=== PATIENT | male | born 1950 | race Caucasian/White ===

== ENCOUNTER 2018-07-05 07:05 | Inpatient (IN) | payer MEDICARE, OTHER ==
[~2018-07-05] VITALS: Ht 160 cm; Wt 63.0 kg
[~2018-07-05 07:05] MED LIST: ADULT GLYCERIN1 EACH RC; CHLORHEXIDINE473 ML PO; CITRUS CALCIUM1 EACH PO; DEBROX15 ML OT; FLEET ENEMA133 ML PR; GUAIFENESIN DM S5 ML PO; GUIAFEN-PSE 10120 ML PO; HEMORRHOIDAL CR51 G1 RC; IBUPROFEN400 MG PO; IBUPROFEN600 MG PO; LOPERAMIDE2 MG PO; MAPAP325 MG PO; MILK OF MA400 MG/5 M PO; SUDOGEST30 MG PO; TUCKS1 EAC1 TP
--- NOTE | 2018-07-05 11:45 | NUR ---
PT RESTING IN BED, ALERT AND ORIENTED TO PERSON AND PLACE. CAREGIVER AT BEDSIDE. PT ABLE TO STATE THAT HE IS EXPERIENCING SOME PAIN TO RIGHT UPPER LEG. ASSESSMENT COMPLETED. CALL LIGHT AND H20 IN REACH.
--- NOTE | 2018-07-05 12:05 | NUR ---
CALL LEFT WITH PACU,RN TO NOTIFY DR RAMOS OF PT'S REPORTED RIGHT HIP PAIN WITH NO CURRENT ORDERS FOR PAIN MEDICATION. PT REPOSITIONED AND ICE APPLIED TO RIGHT HIP. CALL LIGHT IN REACH.
--- NOTE | 2018-07-05 12:09 | EKG ---
[facility] [address] [facility] [place], [place] [address] Signed Normal sinus rhythm with sinus arrhythmia Left anterior fascicular block Lateral infarct , age undetermined Abnormal ECG No previous ECGs available Confirmed by NOHEMI ESTEBAN MD ([id number]) on 07/05/2018 12:09:08 PM Electronically Signed By: NOHEMI ESTEBAN MD 07/05/18 1209 PATIENT NAME: VIKA SANTILLAN Electrocardiogram DATE OF : 54 PHYSICIAN: NOHEMI ESTEBAN MD REPORT #: [id number] REPORT IS CONFIDENTIAL AND NOT TO BE RELEASED WITHOUT AUTHORIZATION
[2018-07-05] MEDS ORDERED: CARBAMOXIDE15 ML OTIC (14:21)
[2018-07-05] MEDS ORDERED: TRIPLE ANTIB28.35 GM TOP (14:28)
--- NOTE | 2018-07-05 14:41 | NUR ---
PT RESTING SUPINE IN BED, EYES CLOSED AND RESPIRATIONS EVEN AND UNLABORED. AIR TESTER HERE TO TRANSPORT PT, REPORT GIVEN AND PT LEAVES FLOOR WITH AIR TESTER AT THIS TIME.
--- NOTE | 2018-07-05 17:13 | NUR ---
PT REMAINS OFF OF FLOOR, DR GABRIEL IN TO SPEAK WITH CAREGIVER.
--- NOTE | 2018-07-05 17:42 | NUR ---
07/05/18 174 Moni Kent 1710- PT ARRIVES TO PACU AROUSABLE TO VOICE. PT INSTANTLY BACK TO SLEEP. RESP EVEN AND UNLABORED. OXYGEN SAT LOW 90'S ON RA. 171- ATTEMPTING TO HAVE TO COUGH AND DEEP BREATHE. PT IS UNABLE TO FOLLOW THESE COMMANDS. PT'S SECRETIONS SUCTIONED.
--- NOTE | 2018-07-05 17:55 | NUR ---
RETUTNED TO ROOM 111. CHAMBER WORKER RECIEVED REPORT FROM TRASHMAN. PT IS AWAKE AND ALERT. THIS WNL FOR PATIENT. IVF TO D5 NS W/ 20 KCL AT 125 ML/HR INFUSING TO R HAND SITE. CRYOCUFF IN PLACE TO RIGHT HIP. HOB ELEVATED. CUEVAS PATENT WITH SMALL AMT OF YELLOW URINE NOTED. CAREGIVER IN ROOM. DINNER ORDERED.
--- NOTE | 2018-07-05 18:30 | NUR ---
PT RETURNS FROM OR, BEDSIDE REPORT RECEIVED FROM CHRISTEN LARSEN. PT RESTING SUPINE IN BED, FAMILY AT BEDSIDE AND CALL LIGHT/H20 IN REACH AND BED ALARM ON.
--- NOTE | 2018-07-05 18:39 | NUR ---
SPOKE WITH DR ESTEBAN ABOUT TORADOL BEING HELD D/T PT'S RECENT RHABDO DX. PER OKAY TO HOLD TODAYS DOSING OF MEDICATION. PHARMACIST NOTIFIED.
--- NOTE | 2018-07-05 19:15 | NUR ---
SHIFT REPORT RECEIVED. PATIENT SITTING UP IN BED. CAREGIVER AT BEDSIDE. PATIENT APPEARS COMFORTABLE. POST OP VS DONE, WNL. NO NEEDS AT THIS TIME. CALL LIGHT IN REACH.
--- NOTE | 2018-07-05 19:40 | EKG ---
[facility] [address] [facility] [place] [address] Signed Normal sinus rhythm Left anterior fascicular block Lateral infarct , age undetermined Abnormal ECG Confirmed by NOHEMI ESTEBAN MD ([id number]) on 07/05/2018 7:39:46 PM Electronically Signed By: NOHEMI ESTEBAN MD 07/05/181939 PATIENT NAME: VIKA SANTILLAN Electrocardiogram DATE OF : 54 PHYSICIAN: NOHEMI ESTEBAN MD REPORT #: [id number] REPORT IS CONFIDENTIAL AND NOT TO BE RELEASED WITHOUT AUTHORIZATION
--- NOTE | 2018-07-05 20:30 | NUR ---
EVENING MEDS PROVIDED PER ORDER. PATIENT'S CAREGIVER IN ROOM. PATIENT IS ORIENTED TO ALL EXCEPT THE DATE, DEVELOPMENTALLY DELAYED. SPEECH IS GARBLED AND DIFFICULT TO UNDERSTAND. PATIENT DENIES PAIN. CMS INTACT. JOSE CARLOS DRESSING IN PLACE, QUARTER SIZE RED DRAINAGE NOTED. CRYO IN PLACE. SCDS, BERNADETTE HOSE, AND HEEL PROTECTORS IN PLACE. PATIENT ABLE TO SWALLOW MEDS WELL WITH SPECIALTY CUP FROM HOME. IV FLUIDS PER ORDER, SITE WNL. PATIENT'S VS DONE, WNL.
--- NOTE | 2018-07-05 22:16 | NUR ---
SCHEDULED ABX PROVIDED. PATIENT RESTING IN BED. WHEN ASKED ABOUT PAIN PATIENT STATED "NO, I'LL TELL YOU". PATIENT'S SPEECH IS DIFFICULT TO UNDERSTAND. TV TURNED OFF PER HIS REQUEST. IV FLUIDS PER ORDER, SITE WNL. DRESSING ON RIGHT HIP CDI. CMS INTACT BILATERALLY. CUEVAS DRAINING CLEAR YELLOW URINE. HIP ABDUCTOR, SCDS, BERNADETTE HOSE, AND HEEL PROTECTORS IN PLACE. CRYO IN USE WITH ADEQUATE ICE. CALL LIGHT IN REACH.
--- NOTE | 2018-07-06 00:38 | NUR ---
PATIENT APPEARS TO BE SLEEPING SOUNDLY. HOB ELEVATED. RR 20. CALL LIGHT IN REACH.
--- NOTE | 2018-07-06 01:15 | NUR ---
IV TYLENOL PROVIDED. PATIENT DENIES PAIN. REPOSITIONED PATIENT FOR COMFORT. JOSE CARLOS DRESSING CDI. CRYO REFILLED. VS STABLE. CUEVAS EMPTIED. URINE IS CONSENTRATED. ABDUCTOR PILLOW, HEEL PROTECTORS, BERNADETTE HOSE, AND SCDS IN PLACE. WARM BLANKET PROVIDED. PATIENT DENIES FURTHER NEEDS. CALL LIGHT IN REACH.
--- NOTE | 2018-07-06 04:00 | NUR ---
PATIENT RESTING IN BED. APPEARS TO BE SLEEPING SOUNDLY. RR 18. CALL LIGHT IN REACH.
--- NOTE | 2018-07-06 06:00 | NUR ---
LAB IN ROOM FOR MORNING DRAW. HELD PATIENT'S HAND TO PROVIDE REASSURANCE. PATIENT APPEARS NERVOUS BUT COMPLAINT WITH CARE. PATIENT DENIES ANY PAIN OR NAUSEA. DRESSING ON RIGHT HIP IS CDI, NO NEW DRAINAGE. CRYO IN USE. HIP ABDUCTOR, BERNADETTE HOSE, SCDS, AND HEEL PROTECTORS IN USE. URINE OUTPUT QS. VS STABLE. PATIENT REPOSITIONED FOR COMFORT. IV FLUIDS PER ORDER, SITE WNL.
--- NOTE | 2018-07-06 06:30 | NUR ---
PATIENT SLEPT ON AND OFF THROUGHOUT THE SHIFT. PAIN WELL CONTROLED WITH SCHEDULED MEDS AND CRYO. NO NAUSEA. TOLERATES DIET, MUST USE SPECIAL CUP AND UTENSILS FROM HOME. PATIENT ORIENTED, BUT HAS DIFFICULTY COMMUNICATING. IV FLUIDS PER ORDER. URINE OUTPUT QS. PATIENT HAS NOT BEEN OUT OF BED POST-OP.
--- NOTE | 2018-07-06 06:59 | NUR ---
SPOKE TO DR. RAMOS. ORDERS TO LEAVE CUEVAS UNTIL FURTHER NOTICE.
--- NOTE | 2018-07-06 07:15 | NUR ---
RECIEVED BEDSIDE REPORT FROM CHRISTEN AYON. PT IN BED. DENIES PAIN. PERSONAL SUPPLIES AND CALL LIGHT IN REACH.
--- NOTE | 2018-07-06 07:50 | OR ---
[facility] [address] [place], [place] [address] Signed DATE OF OPERATION: 07/05/2018 SURGEON: Christofer Jerry MD PREOPERATIVE DIAGNOSIS: Displaced right femoral neck fracture. POSTOPERATIVE DIAGNOSIS: Displaced right femoral neck fracture. PROCEDURE PERFORMED: Right bipolar hemiarthroplasty. WINDOW MAKER: Antonina Crook PA-C. Antonina was present for all portions of the operation. ANESTHESIA: Spinal. BLOOD LOSS: 100 mL. IMPLANTS: Capac fracture stem, size 745 bipolar . BRIEF HISTORY: Trevor is a 68-year-old gentleman with significant MRDD. He was found on the floor in his half-way this morning, unknown how long exactly he had been down. He was transported to the emergency Department where radiographs showed a displaced femoral neck fracture. He was admitted to the hospital for pain control. He was cleared by the Medicine Service for bipolar hemiarthroplasty today and begin weightbearing tomorrow. DESCRIPTION OF PROCEDURE: Once consent was obtained from the guardian, he was taken to the operating room. After adequate anesthesia was placed in the left lateral decubitus position, all downside pressure points were well padded. Axillary roll was placed. The right hip was prepped and draped in a standard sterile fashion. The hip was approached through a 4-inch incision centered on the greater trochanter. This was taken through skin and subcutaneous tissue. The IT band was divided longitudinally and the vastus lateralis was divided from the tip of the trochanter distally and subperiosteally elevated around Electronically Signed By: CHRISTOFER JERRY MD 07/06/18 0750 PATIENT NAME: TREVOR SANTILLAN OPERATIVE REPORT DATE OF : 54 REPORT #: [id number] PHYSICIAN: CHRISTOFER JERRY MD PCP: JESSICA TAYLOR DO REPORT IS CONFIDENTIAL AND NOT TO BE RELEASED WITHOUT AUTHORIZATION [facility] [address] [place], [place] [address] Signed the level of the lesser trochanter. The gluteus medius and capsule were split sharply from the tip of the trochanter to the acetabular rim. This was peeled off the anterior neck. The bleeders were cauterized as we went. The femoral head was then removed from the hip taken the back table measured to 45. The attention was turned to proximal femur. Proximal femur was cleaned up and neck cut was short and just a little bit. The proximal femur was then opened using the januszie cutter followed by the Jacob awl, it was then broached up to a 7, the 7 was found to be quite well fitting. We selected a 7 stem and attempted to place it, however, it hung up on the cortex distally. We then reamed up to a #7 and placed the stem quite easily with excellent press fit. The plus zero head and 45 bipolar were then placed on and it was reduced. Leg lengths found to be equally had excellent range of motion actually better than preop. The wound was copiously irrigated with antibiotic solution. A total of 3 L antibiotic irrigation was used. The capsule was then closed using #1 Vicryl. The vastus and IT band layers were closed independently using #2 Stratafix subcutaneous tissue with 0 Stratafix, and skin with Dermabond mesh. The wound was dressed with JOSE CARLOS wound VAC dressing, he was awakened and taken to the recovery room in satisfactory condition. Prior to closing, we did place 50 mL ropivacaine, Toradol mixture. Christofer Jerry MD BA/YEMIL /[id number] Copies: ~ Electronically Signed By: CHRISTOFER JERRY MD 07/06/18 0750 PATIENT NAME: TREVOR SANTILLAN OPERATIVE REPORT DATE OF : 54 REPORT #: [id number] PHYSICIAN: CHRISTOFER JERRY MD PCP: JESSICA TAYLOR DO REPORT IS CONFIDENTIAL AND NOT TO BE RELEASED WITHOUT AUTHORIZATION
--- NOTE | 2018-07-06 10:33 | NUR ---
PT OCCASIONALLY GRIMACING, RESTLESS. GAVE OXYCODONE 5 MG PO PRN FOR THIS AND FOR PREMEDICATION FOR PHYSICAL THERAPY. DR. ESTEBAN IN TO SEE PT. PT'S CAREGIVER IN ROOM WITH PT. CESAR PHYSICAL THERAPY IN WITH PT NOW, DOING P.T. EVALUATION.
--- NOTE | 2018-07-06 11:18 | NUR ---
PT UP OUT OF BED WITH PHYSICAL THERAPY IN ROOM. UP WITH FWW AND PHYSICAL THERAPIST, WELL PT'S CAREGIVER. PT NOW BACK IN BED. BED ALARM ON. LINNENS CHANGED.
--- NOTE | 2018-07-06 11:45 | NUR ---
SPOKE WITH DR. RAMOS VIA TELEPHONE REGARDING PT'S INCREASING CREATININE KINASE LEVEL, AND HIS ORDER FOR SCHEDULED TORADOL. RECIEVED TORB TO D/C TORADOL.
--- NOTE | 2018-07-06 12:25 | NUR ---
PT RESTING QUIETLY IN BED WITH EYES CLOSED. NO S/S DISTRESS OR DISCOMFORT NOTED OR REPORTED. PERSONAL SUPPLIES AND CALL LIGHT IN REACH.
--- NOTE | 2018-07-06 13:27 | NUR ---
PT IN BED, RESTING QUIETLY WITH EYES CLOSED. NO S/S DISTRESS OR DISCOMFORT NOTED. PERSONAL SUPPLIES AND CALL LIGHT IN REACH.
--- NOTE | 2018-07-06 15:16 | NUR ---
PT UP AT BEDSIDE WITH PHYSICAL THERAPY AFTER WORKING IN ROOM WITH Elaine. PT CRYING OUT, SAYING HE HURTS, GRIMACING, RESTLESS AND ANXIOUS. PROVIDED PT WITH OXYCODONE 10 MG PO PRN. PT THEN ASSISTED INTO BED, IS SITTING UP IN BED, HOB ELEVATED COMPLETELY, AND PT IS DRINKING A COLA AND EATING A JELLO WITH SPECIAL PERSONAL CUP AND SPOON.
--- NOTE | 2018-07-06 18:32 | NUR ---
CALLED TO UPDATE ON PT REPORTS PAIN AT THIS TIME, HOLDING RIGHT HIP. CAREGIVER FEELS HE IS PAINFUL, PT HAS NO OTHER PAIN MEDICATION AVAILABLE AT THIS TIME OTHER THAN IV. GAVE NEW ORDERS.
--- NOTE | 2018-07-06 18:46 | NUR ---
PT WORKED WITH PHYSICAL THERAPY X 2 THIS SHIFT, UP WITH FWW WITH P.T. STAFF AND CAREGIVER. DID IN ROOM EXERCISES, INCLUDING SOME AMBULATION WITH FWW AND 2 PERSON ASSIST. PT SHOWED SIGNS OF DISCOMFORT, AND ALSO C/O PAIN X 3 THIS SHIFT. RECIEVED OXYCODONE 5 MG PO PRN AT 1025 FOR S/S MILD TO MODERATE PAIN. RECIEVED OXYCODONE 10 MG PO PRN AT 1516 FOR S/S/ MODERATE TO SEVERE PAIN AND FOR C/O PAIN. BOTH DOSES WERE EFFECTIVE. THIS EVENING, PT DISPLAYED S/S INCREASING PAIN, AND C/O PAIN, BUT WAS TOO EARLY FOR PRN PAIN MEDICATION, SO DR. RAMOS CHANGED OXYCODONE ORDER, AND PT RECIEVED OXYCODONE 15 MG PO PRN AT 1838. PT HAS HAD BED ALARM ON WHEN NOT DIRECTLY SUPERVISED. USES SPECIAL PERSONAL CUP AND UTENSILS FOR FOOD AND DRINK FOR ASPIRATION RISK. PT WAS SUPERVISED FOR ALL MEALS THIS SHIFT, EITHER BY HIS CAREGIVER, OR BY NURSING STAFF.
--- NOTE | 2018-07-06 19:05 | NUR ---
SHIFT REPORT RECEIVED. PATIENT RESTING IN BED. HOT CHOCOLATE GIVEN TO PATIENT BY CAREGIVER FROM HIS RETIREMENT IN REGULAR CUP. THIS SPILT ON THE BEDSIDE TABLE AND LINENS. ROOM CLEANED AND LINENS REPLACED. HOT CHOCOLATE PLACED INTO PATIENT'S SPECIALTY CUP.
--- NOTE | 2018-07-06 21:30 | NUR ---
PATIENT VOMITING. PRN ZOFRAN ORDERED VIA THE HOSPITALIST SKYEO ORDERS. PATIENT STATING "IT'S FROM THE PAIN, MY TUMMY HURTS AND MY LEG". PRN DILAUDID PROVIDED PER ORDER. PATIENT'S BED LINEN CHANGED. POSITIONED PATIENT FOR COMFORT. PARTIAL BEDBATH COMPLETE. CRYO IN PLACE. HIP ABDUCTOR IN PLACE, BERNADETTE HOSE, SCDS, AND HEEL PROTECTORS. PATIENT'S HIP DRESSING IS CDI, NO NEW DRAINAGE. JOSE CARLOS WORKING. CMS INTACT IN RUPINDER LOWER EXTREMITIES. BED ALARM ON, CALL LIGHT IN REACH.
--- NOTE | 2018-07-06 22:00 | NUR ---
PATIENT'S MEDS HELD DUE TO ONGOING NAUSEA. PATIENT RESTING IN BED. APPEARS CALM AND DENIES PAIN. ALLOWED PATIENT TO REST.
--- NOTE | 2018-07-06 23:44 | NUR ---
PATIENT APPEARS TO BE SLEEPING. RR 18. CALL LIGHT IN REACH.
--- NOTE | 2018-07-07 01:21 | NUR ---
RECEIVED REPORT FROM GABO VELÁSQUEZ. PATIENT GIVEN SCHEDULED MEDICATIONS PER ORDER. PATIENT DENIES ANY NEEDS. CALL LIGHT IN REACH. CRYO HAS SUFFICIENT ICE.
--- NOTE | 2018-07-07 03:13 | NUR ---
PATIENT IS RESTING IN BED. PATIENT AWOKEN WHEN ROOM WAS ENTERED. PATIENT DENIES ANY NEEDS. CALL LIGHT IN REACH.
--- NOTE | 2018-07-07 04:33 | NUR ---
ORESTES IS ON A DYSPAHGIA CHOPPED DIET. PATIENT HAS SPECIAL CUP AT BEDSIDE FOR DRINKING. PATIENT HAS CUEVAS IN PLACE AND IT IS NOT CHRONIC. PATIENT HAS HEEL PROTECTORS IN PLACE. PATIENT HAS WEDGE IN PLACE WHILE IN BED. PATIENT HAS TEDHOSE AND SCDS IN USE ON BILAT LOW EXT. PATIENT HAS JOSE CARLOS IN PLACE, DRAINAGE NOTED BUT UNCHANGED, AND GREEN LIGHT FLASHING. IV INFUSING PER ORDER. PATIENT IS DEVELOPMENTALLY DELAYED. PATIENT HOLLERS OUT WHEN HE NEEDS ASSISTANCE. CALL LIGHT IN REACH. BED ALARM ON FOR SAFETY.
--- NOTE | 2018-07-07 06:27 | NUR ---
PATIENTS VITALS TAKEN AND RECORDED. PATIENT DENIES ANY PAIN. PATIENT APPEARS COMFORTABLE AND SHOWS NO S/S OF PAIN. PATIENT REPOSITIONED IN BED. PATIENTS CRYO REFILLED. IV INFUSING PER ORDER. NO NEEDS NOTED. CALL LIGHT IN REACH.
--- NOTE | 2018-07-07 07:25 | NUR ---
RECIEVED BEDSIDE REPORT FROM CHRISTEN LIANG. PT IN BED, AWAKE, ALERT. DENIES PAIN, STATED "I WILL TELL YOU IF I DO". PERSONAL SUPPLIES AND CALL LIGHT IN REACH.
--- NOTE | 2018-07-07 09:02 | NUR ---
PATIENT ATE BREAKFAST AND FINISHED HIS MIRALAX WATER. AND GOT HIS HOT CHOCOLATE.
--- NOTE | 2018-07-07 10:35 | NUR ---
PT IN BED, SITTING UP. DENIES PAIN. SMILING AND CHATTING WITH STAFF. PERSONAL SUPPLIES AND CALL LIGHT IN REACH.
--- NOTE | 2018-07-07 10:42 | NUR ---
PROVIED PT WITH COLA IN HIS PERSONAL SPECIAL CUP FOR ASPIRATION PREVENTION. PT DENIED OTHER NEEDS.
--- NOTE | 2018-07-07 11:06 | NUR ---
PT IN BED. DR. OWENS IN TO SEE PT. WHEN ASKED IF HE WAS HAVING PAIN TO HIS RIGHT HIP, PT RESPONDED THAT YES HE WAS. UNABLE TO GIVE A PAIN NUMBER. PT HAD OCCASIONAL GRIMACE, AND LEGS WERE RESTLESS. PT GIVEN OXYCODONE 5 MG PO PRN.
--- NOTE | 2018-07-07 12:06 | NUR ---
PT HAS LIMITED ABILITY TO COMMUNICATE, BUT WAS ABLE TO TELL ME HE WAS OK, AND NOT HURTING INBETWEEN SIPS OF HIS BEVERAGE. WILL CONTINUE TO FOLLOW NEEDED
--- NOTE | 2018-07-07 12:15 | NUR ---
AFTER TALKING WITH THE CAREGIVER AND THE DIRECTOR OF [employer]-THE HOUSE PT LIVES IN: MATILDE, CAREGIVER [phone] AND PARDEEP DIRECTOR [phone] ABOUT WHERE THEY WANTED THE DME GOTTEN FROM, THEY TOLD ME TO USE IN HOME MED. I TOLD THEM I WOULD HAVE TO CHECK AND SEE IF THE INSURANCE WOULD CYBER OPERATOR WHAT AMOUNT OF THESE ITEMS: 1. MANUAL [facility] BED WITH RAILS 2. BED ALARM 3. FRONT WHEELED WALKED AFTER CHECKING ON THESE ITEMS I CALLED TO MATILDE PHONE, NO ANSWER MESSAGE LEFT, THEN CALLED TO PARDEEP'S # AND SHE ANSWERED. I TOLD HER WE SHOULD BE COVERED ON THE BED WITH SIDE RAILS AND THE FRONT WHEELED WALKER. BUT DID INFORM HER THAT THE BED ALARM WOULD HAVE TO BE BOUGHT OUT RIGHT. I TOLD HER THE BED ALARM IS LIKE $103 FOR THE PAD TYPE. THEY SAID THAT WOULD BE OK. ALSO LET THEM KNOW IT WOULD BE SOMETIME TOMORROW EARLY AFTERNOON THAT THEY WOULD BE ABLE TO DELIVER THE BED ET AL.
--- NOTE | 2018-07-07 12:55 | NUR ---
FAXED CHART NOTES INCLUDING FACE SHEET, ORDER, ER NOTES AND SUMMARY, H AND P, CONSULT, OP NOTE, PROG NOTES, PT AND OT EVAL AND NOTES TO IN HOME MEDICAL FOR THE FOLLOWING ITEMS. 1. MANUALLY [facility]ABLE [facility] BED WITH SIDE RAILS. 2. BED ALARM PAD TYPE 3. FRONT WHEELED WALKER IN HOME MEDICAL STATES THEY WILL BE ABLE TO DELIVER THE BED EARLY AFTERNOON TOMORROW. WILL BRING THE FWW TO THE HOSPITAL EITHER LATER THIS EVENING OR IN THE MORNING.
--- NOTE | 2018-07-07 12:57 | NUR ---
PT SITTING UP IN BED, AWAKE, ALERT. NO S/S DISTRESS OR DISCOMFORT NOTED OR REPORTED. PERSONAL SUPPLIES AND CALL LIGHT IN REACH.
--- NOTE | 2018-07-07 14:03 | NUR ---
PATIENT GOT UP IN THE CHAIR WITH HELP OF DANIEL THE PHYSICAL THERAPIST. THEN HE WENT ON A WALK DOWN THE [place]. NOW HE IS SITTING IN THE CHAIR AGAIN. EARLIER AT 1200 HE REFUSED TO GET UP OUT OF THE BED.
--- NOTE | 2018-07-07 14:48 | NUR ---
PT WORKED WITH PHYSICAL THERAPY THIS AFTERNOON, AMBULATED IN HALLWAY WITH FWW WITH 1 PERSON ASSIST, 220 FT WITH NO REST BREAKS. TOLERATED WELL. PT NOW SITTING UP IN RECLINER WITH LEGS ELEVATED. DENIES PAIN. HAS PERSONAL SUPPLIES AND CALL LIGHT IN REACH. DENIES NEEDS.
--- NOTE | 2018-07-07 16:45 | NUR ---
PT REPORTED PAIN TO RIGHT HIP, UNABLE TO GIVE PAIN NUMBER. NONVERBAL PAIN ASSESSMENT PAIN NUMBER IS 2. GAVE OXYCODONE 5 MG PO PRN. ALSO GAVE SCHEDULED ACETAMINOPHEN. PT SITTING UP IN RECLINER. HAS PERSONAL SUPPLIES AND CALL LIGHT IN REACH. DENIES OTHER NEEDS AT THIS TIME.
--- NOTE | 2018-07-07 17:12 | NUR ---
PT SITTING UP IN RECLINER, EATING DINNER WITH PERSONAL SPOON AND CUP FOR ASPIRATION PREVENTION. PT FEEDING SELF WITHOUT ISSUE.
--- NOTE | 2018-07-07 17:20 | NUR ---
PT UP WITH 1-2 PERSON ASSIST WITH FWW TODAY. DID AMBULATE 220 FT IN [place] WITH DANIEL PHYSICAL THERAPIST USING FWW TODAY, TOLERATED WELL. SAT UP IN RECLINER THIS AFTERNOON. C/O PAIN TO RIGHT HIP X 2 THIS SHIFT. RECIEVED OXYCODONE 5 MG PO PRN AT 1101 AND AT 1640. PT REPORTED RELIEF OF PAIN AFTER FIRST DOSE, WILL MONITOR FOR EFFECTIVENESS OF DOSE GIVEN AT 1640. PT ON DYSPHAGIA CHOPPED DIET, EATS WITH PERSONAL SPOON AND DRINKS WITH PERSONAL CUP FOR ASPIRATION PREVENTION. NO S/S ASPIRATION NOTED OR REPORTED. PT ALERT, ORIENTED TO PERSON, PLACE, EVENTS, DISORIENTED TO DATE. CUEVAS CATHETER IN PLACE, DRAINING CLEAR YELLOW URINE. NO BM THUS FAR THIS SHIFT.
--- NOTE | 2018-07-07 19:43 | NUR ---
PATIENT DENIES PAIN. SITTING IN BED IN NO DISTRESS WATCHING TV.
--- NOTE | 2018-07-07 20:15 | NUR ---
VS AND I&O'S TAKEN AND DOCUMENTED. PT STATES THAT HE HAS NO NEEDS AT THIS TIME. WILL INFORM RN OF URINE OUTPUT
--- NOTE | 2018-07-08 03:00 | NUR ---
PATIENT STILL RESTING QUIETLY, EYES CLOSED, RESPIRATIONS REGULAR AND EVEN AT 16 CALL LIGHT IN REACH. GOING TO LET HIS SLEEP UNTIL WE DO VITALS.
--- NOTE | 2018-07-08 05:17 | NUR ---
PATIENT IN A GOOD MOOD THIS AM. NO C/O PAIN THIS AM. PAIN MEDS FROM PM MED PASS TOOK CARE OF DISCOMFORT FOR THE NIGHT. CUEVAS AND IV WORKING WELL. PATIENT USING HIS OWN CUP AND SPOONS ONLY. ATE 2 CUPS OF PUDDING LAS NIGHT. PATIENT STILL HAS ORTHO WEDGE, SCD'S AND BERNADETTE'S IN PLACE. PATIENT SAID HE SLEPT WELL. DIME SIZED OLD DRY REFD DRAINAGE ON JOSE CARLOS DRESSING AND GREEN LIGHT IS FLASHING. CALL LIGHT IN REACH.
--- NOTE | 2018-07-08 07:15 | NUR ---
Pt resting supine in bed, alert and oriented to preson place and situation. pPico dsg appears to be intact with small amount of shadowing noted. green light flashing. cms intact distally. call light and h20 in reach. bedside report received. pt denies needs/concerns and appears to be resting comfortably. wedge, stockings, scd's and heel protecters in place.
--- NOTE | 2018-07-08 07:55 | NUR ---
PATIENT RESTING IN BED. RN IN ROOM. PATIENT TRANSFERRED TO THE CHAIR USING A WALKER. TWO PERSON ASSISTING. PATIENT TAKING BREAKFAST. CAREGIVER ARRIVES TO THE ROOM. CALL LIGHT WITHIN REACH. NO OTHER NEEDS AT THIS TIME.
[2018-07-08] MEDS ORDERED: OXYCODONE HCL5 MG PO ×2 (08:03→11:35)
[2018-07-08] MEDS ORDERED: SENNA LAX8.6 MG PO (08:04)
[2018-07-08] MEDS ORDERED: TYLENOL EXTRA500 MG PO (08:04)
[2018-07-08] MEDS ORDERED: HEALTHYLAX17 GM PO (08:04)
[2018-07-08] MEDS ORDERED: XARELTO10 MG PO (08:04)
--- NOTE | 2018-07-08 08:58 | NUR ---
10cc sterile water removed from cath balloon and beaulieu cath removed without difficulty per Dr Jerry request. 950mls of clear yellow urine emptied from beaulieu catheter. Pt tolerated well, attends placed on patient and pt agrees to notify staff when he developes urge to void or for other needs/concerns. call light and h20 in reach. Pt remains within view of nursing station.
--- NOTE | 2018-07-08 10:12 | NUR ---
PATIENT SITTING UP IN CHAIR. VITAL SIGNS AND I&O DONE. PATIENT STANDS UP USING A WALKER. TWO PERSON ASSISTING. RN IN ROOM. PATIENT USES BASE COMMODE. PATIENT USING A CLEAN GOWN. PHYSICAL THERAPIST ARRIVES TO THE ROOM. PATIENT WALKS OUTSIDE THE ROOM WITH PHYSICAL THERAPIST. NO OTHER NEEDS AT THIS TIME.
--- NOTE | 2018-07-08 10:26 | NUR ---
PT BACK FROM WORKING WITH P.T., PT APPEARED TO TOLERATE WELL. PT GIVEN COLA PER HIS REQUEST AND PT APPEARS TO BE IN NO ACUTE DISTRESS. MAINTENANCE FLUIDS INFUSING ORDERED. CALL LIGHT, PERSONAL ITEMS AND SODA IN REACH. NO FURTHER NEEDS/CONCENRS VOICED. PT REMAINS IN VIEW OF NURSING STATION.
--- NOTE | 2018-07-08 10:51 | NUR ---
Call to pt's caregiver Reshma placed and Reshma agrees to come up for discharge education and to transport pt home.
--- NOTE | 2018-07-08 11:59 | NUR ---
Pt reports increased pain to right knee with movement. PRN PO opiod administered per pt request -see EMAR. no other needs/concerns voiced. pt's caregivers aware that pt is not to take any more opiod pain medications for 3 full hours and that pt is not to drive or operate heavy machinery.
--- NOTE | 2018-07-08 13:14 | NUR ---
PT STANTON, WAVING TO ALL THAT NOTICED HE WAS WHEELED OUT IN WC BY STAFF. GOD BLESS HIM
--- NOTE | 2018-07-08 16:51 | NUR ---
FAXED UPDATED PROG NOTE REGARDING HOSPITAL BED TO IN HOME MED. RECIEVED FAX CONFIRMATION ON THIS. I FAXED CHART NOTES TO [facility] FOR PT FOR THIS PT, INCLUDING FACESHEET, ER NOTES, AND SUMMARY, H AND P, PROG NOTE, CONSULT, OP NOTE, PT AND OT EVAL AND NOTES. RECIEVED FAX CONFIRMATION. MESSAGE LEFT FOR [facility].
--- NOTE | 2018-07-09 08:48 | DS ---
[facility] [address], [place] [address] Signed ADMISSION DATE: 07/05/2018 DISCHARGE DATE: 07/08/2018 ADMISSION DIAGNOSIS: Right femoral neck fracture displaced. DISCHARGE DIAGNOSIS: Right femoral neck fracture displaced. PROCEDURE PERFORMED DURING THIS HOSPITALIZATION: Right hip bipolar hemiarthroplasty. BRIEF HISTORY: Trevor is a 68-year-old patient with MRDD who was found on the ground at his residential facility complaining of hip pain. He was transferred to the Emergency Department where radiographs revealed a displaced femoral neck fracture. He was admitted to my service. He was taken to the operating room that afternoon and underwent bipolar hemiarthroplasty. He did have a little bit of rhabdomyolysis from lying on the floor that resolved with hydration. Pain control was good with him throughout. His range of motion and strength were good. However, not within normal range. He was kept on DVT prophylaxis of SCDs, TEDs, and Xarelto 10 mg p.o. daily. This will be continued at home. He was also kept on oxycodone 5-15 mg q.3-4 hours as needed for pain. He will be continued on this along with Tylenol. He will go back to his residential facility where he is much more comfortable from a mental status point of view. We will have home health visit him for range of motion strengthening and balance along with gait. He continued to be weightbearing as tolerated on his hip. Should they have problems, will notify me immediately, otherwise we will see him back in 7 to 10 days. Christofer Jerry MD BA/CHELSI /[id number] Copies: Electronically Signed By: CHRISTOFER JERRY MD 07/09/18 0848 PATIENT NAME: TREVOR SANTILLAN DISCHARGE SUMMARY DATE OF : 54 REPORT #: [id number] PHYSICIAN: CHRISTOFER JERRY MD PCP: JESSICA TAYLOR DO REPORT IS CONFIDENTIAL AND NOT TO BE RELEASED WITHOUT AUTHORIZATION [facility] [address] [facility], [place] [address] Signed ~ Electronically Signed By: CHRISTOFER JERRY MD 07/09/18 0848 PATIENT NAME: TREVOR SANTILLAN DISCHARGE SUMMARY DATE OF : 54 REPORT #: [id number] PHYSICIAN: CHRISTOFER JERRY MD PCP: JESSICA TAYLOR DO REPORT IS CONFIDENTIAL AND NOT TO BE RELEASED WITHOUT AUTHORIZATION
== END 2018-07-08 12:05 | disposition home health service (06) | DRG 470 ==
LOC: ED 07:05 → MS 10:08
PROVIDERS: ADMIT Specialist
PROC: 0SRR0JA Replacement of Right Hip Joint, Femoral Surface with Synthetic Substitute, Uncemented, Open Approach (ICD-10-PCS; principal; 2018-07-05 15:00)
DX: S72.001A Fracture of unspecified part of neck of right femur, initial encounter for closed fracture (principal); M62.82 Rhabdomyolysis; B18.1 Chronic viral hepatitis B without delta-agent; F79 Unspecified intellectual disabilities; R13.10 Dysphagia, unspecified; W06.XXXA Fall from bed, initial encounter; Y92.193 Bedroom in other specified residential institution as the place of occurrence of the external cause; Z88.0 Allergy status to penicillin; Z79.1 Long term (current) use of non-steroidal anti-inflammatories (NSAID); Z79.899 Other long term (current) drug therapy
CPT/HCPCS: 01210; 36415; 51702; 72170; 73502; 80048; 80053; 81001; 82550; 85025; 85610; 86850; 86900; 86901; 93005; 93010; 97110; 97116; 97163; 97530; 99285-25; C1776; J0131; J0690; J1170; J2250; J2270; J2405; J2704; J7030; J7120

== ENCOUNTER 2019-07-31 20:48 | Inpatient (IN) | payer MEDICARE, OTHER ==
[~2019-07-31] VITALS: Ht 160 cm; Wt 73.0 kg
[~2019-07-31 20:48] MED LIST changes: +CARBAMOXIDE15 ML AU; +HEALTHYLAX17 GM PO; +OXYCODONE HCL5 MG PO; +SENNA LAX8.6 MG PO; +TRIPLE ANTIB28.35 GM TOP; +TYLENOL EXTRA500 MG PO; +XARELTO10 MG PO
[2019-07-31] MEDS ORDERED: ALENDRONATE SOD70 MG PO (21:02)
--- NOTE | 2019-08-01 01:15 | NUR ---
PATIENT ARRIVED TO THE UNIT VIA STRETCHER. 3 PERSON ASSIST TO TRANSFER TO BED. PATIENT IS ALERT AND TALKATIVE. ORIENTED TO SELF AND SURROUNDINGS. ABLE TO DESCRIBE EVENTS LEADING UP TO EMS BEING CALLED BUT WAS UNSURE OF HIS REASON FOR ADMISSION. PATIENT DENIES FEELING SICK OR HAVING ANY PAIN. TOLERATING ROOM AIR. CONGESTED COUGH WITH MODERATE AMOUNT OF SECREATIONS NOTED. PATIENT DROOLING, WHICH IS NORMAL PER INFO FROM DETENTION. HOB ELEVATED >40 DEGREES. LUNG SOUNDS ARE DIFFICULT TO HEAR DUE TO UPPER AIRWAY CONGESTION. COARSE IN THE RUPINDER UPPER LOBES AND DIM IN THE BASES. PATIENT'S SKIN IS GROSSLY INTACT. IV SITE IN RIGHT AC APPEARS INFILTRATED WITH SWELLING AND BRUISING. NO IV FLUIDS CURRENTLY INFUSING, SITE DC'D AND WNL. GAUZE AND COBAN DRESSING APPLIED. IV BOLUS FINISHED. CONTINUOUS FLUIDS STARTED IN NEW IV SITE IN LEFT FOREARM. PATIENT CONTINUES TO HAVE FEVER, PO TYLENOL PROVIDED IN A BITE OF APPLE SAUCE. PATIENT TOLERATED WELL.
--- NOTE | 2019-08-01 02:30 | NUR ---
PATIENT'S FEVER IMPROVED, 98.9 F ORAL. PATIENT IS RESTING, OCCATIONALLY COUGHING. ASSISTED WITH ORAL SUCTIONING NEEDED. REPOSITIONED UP IN THE BED, HOB ELEVATED >40 DEGREES. VS STABLE. IV FLUIDS AND ABX INFUSING. SITE WNL. BED ALARM ACTIVE. CALL LIGHT IN REACH.
--- NOTE | 2019-08-01 04:15 | NUR ---
PATIENT'S ATTENDS WET WITH MODERATE AMOUNT OF URINE. DEENA CARE DONE AND NEW ATTEND IN PLACE. PATIENT REPOSITIONED FOR COMFORT. HOB ELEVATED TO 40 DEGREES. PATIENT CONTINUES TO COUGH FREQUENTLY. ASSISTED TO ORAL SUCITON. THIN WHITE TO CLEAR SECREATIONS NOTED. TOLERATING ROOM AIR. IV FLUIDS PER ORDER, SITE WNL. BED ALARM ON. CALL LIGHT IN HAND, PATIENT DEMONSTRATED HOW TO USE CALL LIGHT.
--- NOTE | 2019-08-01 06:44 | NUR ---
PATIENT HAS BEEN COUGHING AND RESTLESS, UNABLE TO SLEEP. PATIENT NOW APPEARS TO BE SLEEPING. ALLOWED PATIENT TO REST. IV SITE WNL, FLUIDS PER ORDER. O2 SAT 92% ON ROOM AIR. RR 22. HR 80'S.
--- NOTE | 2019-08-01 07:30 | NUR ---
REPORT RECIEVED. PATIENT IS IN ISOLATION. PATIENT IS LAYING IN BED WITH HOB ELEVATED.
--- NOTE | 2019-08-01 08:00 | NUR ---
ASSESSMENT DONE. INCONT OF LARGE STOOL AND URINE. HAS HARSH, NON-PRODUCTIVE COUGH. IS TALKING, HAVING DIFFICULTY UNDERSTANDING WHAT HE IS SAYING. TALKED TO PT ABOUT POC FOR DAY. ATTENDS CHANGED.
--- NOTE | 2019-08-01 09:00 | NUR ---
PATIENT UNABLE TO ANSWER QUESTIONS EASILY, CALLED CAREGIVER MATILDE ROYAL [phone]. PATIENT LIVES [place] [employer]. PATIENT BROKE HIP LAST YEAR AND HAS BEEN USING FWW SINCE. HE NORMALLY CAN TOILET SELF, HOWEVER WEARS A ATTENDS FOR SOME INCONTINCE ACCIDENTS. HE IS VERBAL, BUT GETS STRESSED WITH A LOT OF QUESTIONS AND NERVOUS CAN HAVE TROUBLE WITH GETTING STUCK ON SAME ANSWERS. HE LIVES IN A MEDICAL HOUSE SO HAS ACCESS TO WHEELCHAIR AND OTHER EQUIPMENT INCLUDING OXYGEN. HE HAS NO FAMILY. THERE IS NO ADVANCE DIRECTIVE OR POLST. HE USES A PREVAIL CUP AND HIS DIET IS 1/4INCH LIMITED. YESTERDAY HE C/O OF SORE THROAT AND HAD TROUBLE EATING LUNCH. LAST NIGHT THEY GROUND HIS FOOD AND HE WAS ABLE TO EAT. HE WEARS DENTURES, BUT SHE IS UNSURE IF HE CAME WITH THEM. NORMALLY HE HAS NO PROBLEM SWALLOWING PILLS. THEY INTEND FOR HIM TO RETURN HOME AT DISCHARGE UNLESS THERE IS SOMETHING THEY CANNOT PROVIDE NEEDED. CM WILL CONTINUE TO FOLLOW.
--- NOTE | 2019-08-01 09:57 | NUR ---
RESTING AT THIS TIME. RESP RATE 27. HOB ELEVATED.
--- NOTE | 2019-08-01 11:00 | NUR ---
VERBAL ORDER RECIEVED TO TRANSFER TO MED-SURG. MONITOR DC'D.
[2019-08-01] MEDS ORDERED: TYLENOL325 MG PO (11:05)
--- NOTE | 2019-08-01 11:07 | NUR ---
MED REC COMPLETE
--- NOTE | 2019-08-01 11:11 | NUR ---
TRANSFERRED TO ROOM 117 AT 1100. SPEECH THERAPIST IN TO ASSESS PATIENT. GARBLED SPEECH, BUT TALKATIVE. COUGHING, BUT NOT RELATED TO FOOD PER SPEECH THERAPIST.
--- NOTE | 2019-08-01 11:20 | NUR ---
TO MED-SURG VIA BED. REPORT GIVEN.
--- NOTE | 2019-08-01 12:50 | NUR ---
PATIENT RESTING IN BED WITH EYES OPEN.
--- NOTE | 2019-08-01 13:09 | NUR ---
PATIENT RESTING IN BED. NO NEEDS AT THIS TIME.
--- NOTE | 2019-08-01 13:15 | NUR ---
pt RESTING IN BED WITH EYES CLOSED. RESPIRATIONS OBSERVED.
--- NOTE | 2019-08-01 17:09 | EKG ---
[facility] [address] [facility] [place] [address] Signed Sinus tachycardia Left anterior fascicular block Possible Lateral infarct (cited on or before 05-JUL-2018) Abnormal ECG When compared with ECG of 05-JUL-2018 14:01, Vent. rate has increased BY 54 BPM T wave amplitude has increased in Inferior leads Confirmed by KO CARVER MD ([id number]) on 08/01/2019 5:09:26 PM Electronically Signed By: KO CARVER MD 08/01/19 1709 PATIENT NAME: VIKA SANTILLAN Electrocardiogram DATE OF : 54 PHYSICIAN: KO CARVER MD REPORT #: [id number] REPORT IS CONFIDENTIAL AND NOT TO BE RELEASED WITHOUT AUTHORIZATION
--- NOTE | 2019-08-01 18:20 | NUR ---
MRDD. INCONTINENT. ROOM AIR. HARSH COUGH. CONTACT/DROPLET ISOLATION. COVID RULE OUT. GARBLED SPEECH. MINCED AND MOIST WITH THIN LIQUID DIET. 2PA WHEN OUT OF BED. D5LR @ 100. ABX X3.
--- NOTE | 2019-08-01 20:00 | NUR ---
RECEIVED REPORT AT 1900, FOUND PT IN BED SLEEPING.
--- NOTE | 2019-08-01 22:56 | NUR ---
V/S ARE WDL AT THIS TIME. PT HAD AN INCONT. VOID X1 AND A LARGE BM. ALL LOBES ARE COARSE AT THIS TIME AND PT HAS A FREQUENT HARSH COUGH. ABD SOUNDS ARE PRESENT, NO PERIPHERAL EDEMA NOTED, PT IS NOT ABLE TO FOLLOW COMMANDS AT ALL TIMES.
--- NOTE | 2019-08-02 00:04 | NUR ---
PT IS SLEEPING IN BED. NO NEW CONCERNS NOTED.
--- NOTE | 2019-08-02 02:00 | NUR ---
PT WAS PUT ON 2L O2 VIA NC DUE TO SATS OF 85%-92%. WHEN O2 SATS DROP IT TAKES PT A BIT TO RECOVER. COUGH IS STILL HARSH SOUNDING. ALL LOBES ARE TIGHT AT THIS TIME BUT PT DID NOT FOLLOW COMMAND WELL ABOUT TAKING DEEP BREATHS. TEMP AT THIS TIME IS 100.6 F. 500MG PRN TYLENOL WAS GIVEN. WILL CONTINUE TO MONITOR. PT ALSO HAD ANOTHER INCONTINENT LARGE VOID.
--- NOTE | 2019-08-02 04:07 | NUR ---
PT IS AFEBRILE AT THIS TIME. RR IS 20 AND PT IS DOING WELL ON 2L O2 NC AT 96%. WILL CONTINUE TO MONITOR.
--- NOTE | 2019-08-02 05:19 | NUR ---
ALL LOBES AT START OF SHIFT WERE COARSE AND PT HAS BEEN HAVING A HARSH NON-PRODUCTIVE COUGH. WITH SECOND ASSESSMENT, ALL LOBES HAVE BEEN TIGHT SINCE. AT 0200 PT ALSO HAD A TEMP OF 100.6 F. PRN TYLENOL WAS GIVEN AND PT NOW IS AFEBRILE. PT AT 0200 WAS ALSO PUT ON 2L O2 NC SINCE HIS SATS WERE ANYWHERE FROM 85%-92% ON RA. WHEN PT MOVES OR COUGHS IT TAKES HIM A BIT TO RECOVER HIS O2 SATS. PT HAD 1 LARGE BM AND 2 LARGE VOIDS SO FAR. V/S OTHERWISE HAVE BEEN WDL. NO PERIPHERAL EDEMA NOTED, ABD IS FIRM TO TOUCH WITH BOWEL TONES PRESENT.
--- NOTE | 2019-08-02 07:53 | NUR ---
REPORT RECIEVED FROM OCCUP THER RN. PT IN BED. 2L NC IN PLACE. CROPET PRECAUTIONS IN PLACE. RESPIRATIONS EQUAL AND NONLABORED.
--- NOTE | 2019-08-02 10:10 | NUR ---
MATILDE CALLED FOR UPDATE. UPDATED ON PLAN.
--- NOTE | 2019-08-02 10:43 | NUR ---
IN WITH PT AROUND 0830 TO CHECK ATTENDS. DRY AT THAT TIME. GOT PT UP TO CHAIR AND MADE BED. ORDERED BREAKFAST. FOUND NEW ORDER FOR PUREE DIET. ENCOURAGED ENSURE MILKSHAKE. AT THIS TIME PT IS UP IN CHAIR WATCHING TV.
--- NOTE | 2019-08-02 11:30 | NUR ---
In to speak with pt. He does not awaken to voice. Spoke with Rn and she states he has been somulent.
--- NOTE | 2019-08-02 11:30 | NUR ---
Visit deferred due to possible covid infection. Awaiting results.
--- NOTE | 2019-08-02 11:45 | NUR ---
PATIENT SITTING UP IN BED. PATIENT FED. BED ALARM ON. CALL LIGHT WITHIN REACH. NO OTHER NEEDS AT THIS TIME
--- NOTE | 2019-08-02 12:47 | NUR ---
PT IN BED SLEEPING AT THIS TIME. CALL LIGHT WITHIN REACH.
--- NOTE | 2019-08-02 13:31 | NUR ---
SPEECH PATHOLOGY NOTE: PRIMARY CARE PEDIATRICIAN called RN to discuss diet tolerance. RN stated that pt continues to present with dry coughing but that he did consume lunch 1:1 with LARGE SHEETFED PRESS OPERATOR. She states that MD changed diet to puree however is unsure of reasoning. If pt has difficulty with ground diet, puree diet may be easier for pt to consume. He did not have difficulty with ground diet yesterday. Will d/c speech services at this time, however encouraged RN to reconsult PRIMARY CARE PEDIATRICIAN if pt develops difficulty with swallowing. Continue 1:1 feeds and aspiration precautions including small sips of liquid, no straws.
--- NOTE | 2019-08-02 13:45 | NUR ---
PT STATES HE IS OK. ATTENDS IS DRY AT THIS TIME. DOES NOT WANT TO GET UP AND USE THE BATHROOM. GAVE CHOLOSIN PO. TOOK WITH NO DIFFICULTIES. IN BED RESTING WATCHING TV AT THIS TIME.
--- NOTE | 2019-08-02 14:18 | NUR ---
PATIENT SITTING UP IN BED. VITAL SIGNS DONE BY RN. I&O DONE. CALL LIGHT WITHIN REACH. BED ALARM ON. NO OTHER NEEDS AT THIS TIME
--- NOTE | 2019-08-02 14:28 | NUR ---
BECAUSE OF PRECAUTIONS, UNABLE TO VISIT PT A THIS TIME
--- NOTE | 2019-08-02 16:37 | NUR ---
OXYGEN CHECKED. 88% ON RA. 2L NC PLACED. SBA TO BATHROOM. VOIDED 200 ML. ASSISTED PT UP TO CHIAR. CALL LIGHT AND PERSONAL ITEMS WITHIN REACH. IV TO LEFT HAND INFILTRATED AND DC'D. LAC WNL. FLUIDS INFUSING.
--- NOTE | 2019-08-02 18:21 | NUR ---
PATIENT SITTING UP IN CHAIR. VITAL SIGNS DONE. HIGH TEMPERATURE. RN NOTIFIED. LINENS CHANGED. PATIENT FED. PATIENT TRHOWS UP PHLEGM. RN NOTIFIED. CALL LIGHT WITHIN REACH. NO OTHER NEEDS AT THIS TIME
--- NOTE | 2019-08-02 18:49 | NUR ---
FEVER REPORTED FROM MANAGER CAFE. PRN TYLENOL GIVEN. ROBITUSSIN FOR COUGH ALSO ADMINSITERED. PT SITTING UP IN CHAIR WITH 2L NC IN PLACE. CALL LIGHT IN REACH.
--- NOTE | 2019-08-02 19:15 | NUR ---
assumed care, report from day shift clarence. pt up in , call light in reach denies needs, gives thumbs up.
--- NOTE | 2019-08-02 22:18 | NUR ---
THIS RN IN FOR CARE, PT IV WNL- R AC. FLUSHES AND BACK FLOWS BLOOD WELL. PREVIOUS IV INFILTERATED AND HAND IS SWOLLEN - REPOSITIONED PT FROM CH TO BED AND ELEVATED HAND/ARM TO PILLOW. PT AMB TO BR WITH RN TO HAVE SM BM, SKIN WNL, AMB TO BED, CALL LIGHT IN REACH AND BED ALARM ON FOR NIGHT. IV ABX FUSING WELL, PUMP CLEARED. PT TAKES DRINKS OF APPLE JUICE AND COUGHS. NASAL DISCHARGE NOTED. PT DENIES PAIN, JUST SAYS "WHY ME?" PT IS DD AND FROM [facility]- RN TRYIED TO VISIT WITH HIM AND HE JUST SAID HE WAS READY FOR BED. CONTINUES TO COUGH AND APPEAR UNCOMFORTABLE. LUNG SOUNDS ARE NOISEY - COVERED BY HIS KIND OF GRUNTING VERBAL NOISES. INS. WHEEZE OCCASIONAL BILAT. PT IS ON RM AIR AT 93%. PT WATCHING TV WITH BED ALARM ON AND RN WILL CONT. TO CHECK, CALL LIGHT IN REACH.
--- NOTE | 2019-08-03 02:30 | NUR ---
WHEN AMB PT TO BR PT DID OK, RETURNED TO BED, SATS WERE IN THE 80'S - PLACED 2L NC TO PT AND SATS WENT TO 93.
--- NOTE | 2019-08-03 03:28 | NUR ---
IN TO HANG IV ABX, PT UP TO BR WITH RN ASSIST, INCT URINE AND TO TOILET TO HAVE LIQ, BM WITH FLATUS. AMB TO BED AFTER LINEN AND ATTENDS CHANGED. CALL LIGHT IN REACH AND BED ALARM ON. DEINES NEEDS, WIPED NOSE- RUNNY, AND STEADY COUGH NOTED. DRY.
--- NOTE | 2019-08-03 03:30 | NUR ---
PT IS MRDD, USES BED ALARM FOR SAFTEY. VERY NICE. DRY COUGH, ON AND OFF O2 IN NIGHT. DENIES PAIN. INCT. OF URINE/STOOL. ABX AND PENDING TESTING TO FOLLOW.
--- NOTE | 2019-08-03 03:47 | NUR ---
PT AWAKE MOST OF THE NIGHT, PLEASANTLY CONFUSED, REPORTS HE IS 89 YRS OLD WITH A CHUCKLE. DAILY WT, CUEVAS IN PLACE, KCL IMPROVED. TELE #10 WITH A PACED RATE. TEMPORARILY LIVES AT [place] [facility] HIS SON WORKS, PLANS TO RETURN HOME WITH AND HIS GRANDKIDS. LG BRUISE ON LEFT CHEST FROM FALL AT HOME, HAS HX FALLS BUT USES 1PERSON STANDBY ASSIST.
--- NOTE | 2019-08-03 06:36 | NUR ---
rn in pt room for lab draw assist and iv bag change. pt tollerated well. 02 2lnc 92% pt resting denies needs, occasional cough.
--- NOTE | 2019-08-03 07:59 | NUR ---
REPORT RECEIVED FROM AL Corral RN. PATIENT ASLEEP AT THIS TIME. IVF INFUSING. 2L 02 VIA AR. RICKEY CANCINO FEEDING PATIENT BREAKFAST.
--- NOTE | 2019-08-03 08:34 | NUR ---
PATIENT RESTING IN BED. PATIENT'S ATTEND CHANGED. GOWN CHANGED. PATIENT TRANSFERRED TO CHAIR. ONE PERSON ASSISTING. LINENS CHANGED. PATIENT FED. VITAL SIGNS AND I&O DONE. CALL LIGHT WITHIN REACH. NO OTHER NEEDS AT THIS TIME
--- NOTE | 2019-08-03 08:50 | NUR ---
Discussed in [address] Tillman. Pt may dc today.
--- NOTE | 2019-08-03 11:45 | NUR ---
Spoke with pt's nurse. Pt remains on 02. Spoke with Reshma caser in from [facility]. She states concern as more than one pt is sick in their facility. She is concerned for staff as well as pt. Dr. Tillman updated pt is still on 02 and he states he will more than likely need to spend the night. Reminded pt will need an 02 qualifier prior to dc if he not completed weened.
--- NOTE | 2019-08-03 13:21 | NUR ---
PATIENT SITTING UP IN CHAIR. PATIENT'S ATTEND CHANGED. GOWN CHANGED. VITAL SIGNS AND I&O DONE. CALL LIGHT WITHIN REACH. NO OTHER NEEDS AT THIS TIME
--- NOTE | 2019-08-03 13:53 | NUR ---
PT ON PRECAUTIONS, UNABLE TO VISIT
--- NOTE | 2019-08-03 15:00 | NUR ---
CALL LIGHT ANSWERED. PATIENT NEEDS TO USE THE BATHROOM. PHYSICAL THERAPIST IN ROOM. PATIENT INCONTINENT OF URINE AND STOOL, PERICARE PERFORMED. GOWN CHANGED. PATIENT BACKS TO CHAIR. CALL LIGHT WITHIN REACH. NO OTHER NEEDS AT THIS TIME
--- NOTE | 2019-08-03 18:44 | NUR ---
1PA TRANSFERS. JANETH MENDEZ. CLINDAMYCIN IV. D5LR @ 75. INCONTINENT. LOOSE STOOL TODAY. AFEBRILE. 2L [address]
--- NOTE | 2019-08-03 20:04 | NUR ---
HOB ELEVATED, ALERT, FOLLOWS INSTRUCTIONS, ON 2L NC, CONSTANT MOIST NON PRODUCTIVE COUGH AT TIMES, ROBUTOSSIN COUGH SYRUP GIVE, INCREASED COUGH NOTED TOO WITH LIQUIDS, ASPIRATION PRECAUTIONS IN PLACE. IVF INFUSING, PT UNABLE TO USE CALL LIHT, CONTINUOUS ON DROPLET AND CONTACT ISOLATION. ALL PROCEDURES EXPLAINED, GFARBLED SPEECH FOLLOWS INSTRUCTIONS WELL, REPOSITIONED IN BED. ATTENDS DRY
--- NOTE | 2019-08-03 22:56 | NUR ---
O2 2L NC, NO COUGH AT THIS TIME, EYES CLOSED, RESP EVEN, UNLABORED. IVF INFUSING, BED ALARM ON, FALL AND ASPIRATION PRECAUTIONS IN PLACE. UNABLE TO USE CALL LIGHT
--- NOTE | 2019-08-04 01:23 | NUR ---
RESTING, O2 2l NC, RESP EVEN, UNLABORED, EYES CLOSED, NO DISTRESS. IVF INFUSING W/O PROBLEMS, HOB ELEVATED, BED ALARM ON,
--- NOTE | 2019-08-04 03:10 | NUR ---
RESTING, EYES CLOSED, NO RESP DISTRESS, O2 2L NC, IVF INFUSING, BED ALARM ON. NO COUGH HEARD, HOB ELEVATED
--- NOTE | 2019-08-04 05:44 | NUR ---
pt took O2 off, was coughing forcefully. moist productive of clear thick oral and nasal drainage, hob elevated. sats were 72-73% on room air and coughing. O2 2L NC placed back on sats 82-88% on O2 and coughing. when he calmed down naomi were 88-92%. Pt was incontinent of urine and bm. barrier cream and new attends in place, Pt cooperative. plus he walked to BR, voided 300cc more clear urine, back to bed, SOB w exertion present and coughing, sats were 86% Back to chair on request. sats 91% at that time. sip of fluids given, no straw, slight cough present afterwards, recuperate quickly. Denies c/o pain IVF infusing w/o problems. Arm elevted in pillows, call light at hands reach.
--- NOTE | 2019-08-04 05:52 | NUR ---
Pt continous on droplet and contact isolation. O2 2LNC, has desatted to 72-73% on room air as he took O2 off, back to 88-92% on O2, frequent,hacky moist cough present, white thick oral and nasal drainage present. Lungs coarse bilat Incontinent of urine and bowel x2, plus ambulated to br, sob with exertion present. ivf infusing, Up in chair at this time, has slept at least 4hrs this shift. Pt garbled speech, pleasant and cooperative
--- NOTE | 2019-08-04 06:24 | NUR ---
in chair, resting, O2 in place, calm, no distress, eyes closed
--- NOTE | 2019-08-04 07:44 | NUR ---
REPORT RECEIVED FROM CUSTOMER SERVICE REPRESENTATIVE TELLER RN. PT SITTING IN CHAIR 2L NC IN PLACE. EYES CLOSED AND RESPIRAITONS WNL. CONTACT AND DROPLET PRECAUTIONS IN PLACE. CALL LIGHT IN REACH.
--- NOTE | 2019-08-04 08:30 | NUR ---
Discussed in IDT. will update when he has seen this pt. Received note, [facility] would like an update.
--- NOTE | 2019-08-04 09:45 | NUR ---
ASSESSMENT COMPLETED. LUNGS WITH VERY COARSE CRACKLES TO MIND LUNG BILATERALLY. PT WITH PERSISTENT AND HARSH COUGH. PT PLACED OF RA FOR EVALUATION./ SAT AT 90% WHILE NOT COUGHING OR MOVING. AMBULATED TO BATHROOM FOR BM AND BACK. REASSESSED SATURATION ON RA, PT SATS WERE AT 77%. PLACED 4L NC AND ENCOURAGED DEEP BREATHING THROUGH NOSE. PT CONTINUED TO COUGH CONSISNTENTLY. RECOVERED AFTER ABOUT 2 MINUTES. TITRATED TO 2L NC. CPOX PLACED FOR MONITOR. 92% ON 2L. HEART SOUNDS NORMAL, NO ENEDA. BOWEL TONES HYPERACTIVE. LIQUID STOOL INCONTINENCE. ATTEMPTED TO FEED BREAKFAST UP IN CHAIR. PERSISITENT COUGH PREVENTED FEEDING. KEPT PT IN CHAIR. CALL LIGHT IN REACH.
--- NOTE | 2019-08-04 10:00 | NUR ---
DR OWENS NOTIFIED OF LUNG SOUNDS, OXYGEN WITH AMBULATION AND INABILITY TO EAT BREAKFAST WITHOUT COUGHING. CXR ORDERED. NO OTHER ORDERS.
--- NOTE | 2019-08-04 10:43 | NUR ---
IMAGING HER FOR XRAY.
--- NOTE | 2019-08-04 11:09 | NUR ---
VISUALIZED PT THROUGH DOOR. CPOX IN PLACE. 92% ON RA. HEART RATE WNL. RESPIRAIOTNS EQUAL AND NONLABORED. CALL LIGHT IN REACH.
--- NOTE | 2019-08-04 13:00 | NUR ---
IN TO ASSESS PT. ASSISTED TO BATHROOM. 2 UNMEASURED VOIDS. ATTEPTED TO FEED PT. PERSISITENT COUGH PRESENT AFTER 1ST BITE/ OXYGEN DROPPED TO 88% OF RA. 2L NC PLACE. PT PLACED NPO. NOTE SENT TO DR OWENS.
--- NOTE | 2019-08-04 14:36 | NUR ---
NARCISO FROM SPEACH THERAPY CALLED. DISCUSSED PT SWALLOWING HABITS AND XRAY. AGREED TO PLACE PT NPO. RECOMMENDS MODIFIED SWALLOW EVALUATION TOMORROW. WILL NOTIFY DR OWENS.
--- NOTE | 2019-08-04 14:38 | NUR ---
BECAUSE OF PRECAUTIONS STILL UNABLE TO VISIT PT.
--- NOTE | 2019-08-04 15:34 | NUR ---
Called and notified Reshma at [facility]. Covid test was negative. Update, per Dr. Tillman xray was somewhat worse, but pt states feeling better. Will attempt to wean from 02.
--- NOTE | 2019-08-04 16:40 | NUR ---
SAB TO BATHROOM FOR LIQUID BM. NO URINE. DR OWENS NOTIFIED. SUCTION PROVIDED TO NOSE. CALL LIGHT IN REACH. FLUIDS INFUSING.
--- NOTE | 2019-08-04 21:13 | NUR ---
PT WALKED TO BR, HAD SMALL LIQUID GREEN COLORED SOFT BM, WAS INCONTINENT OF URINE, PLUS VOIDED IN HAT. BACK TO BED, SOB WITH EXERTION PRESENT, SATS ON RETURN WITH O2 WAS 89%. PT HAD TAKEN O2 OFF EARLIER DUE TO COUCHING. SASST WERE 83% AT THAT TIME, O2 WAS PLACED BACK ON AND SATS WENT UP TO 91%, r 22-26 AT THAT TIME, HACKY FREQUENT COARSE PRODUCTIVE COUGH WITH THIN WHITE ORAL AND NASAL DISCHARGE NOTED. PT WAS PICKING AT L NARE, TOO. 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 CLEAN ATTENDS AND SKIN CARE W BARRIER CARE TO BUTTOCKS AND PIERI AREA. RED AREA NOTEDBETWEEN BUTTOCKS. PLEASANT, GARBLED SPEECH, COGNITIVE DEFICIENCIES BUT FOLLOWS INSTRUCTIONS, UNABLE TO USE CALL LIGHT, BED ALARM ON. HOB ELEVATED , ASPIRATION AND FALL PRECAUTIONS IN PLACE. NPO, CONTINUOUS ON DROPLET AND CONTACT ISOLATION. COVID-19 SAMPLE REDRAWN EARLIER BETWEEN SHIFTS AND SENT TO LAB.
--- NOTE | 2019-08-04 22:34 | NUR ---
ROUNDED ON pt. RESTING WITH EYES CLOSED, RESPIRATIONS REGULAR AND UNLABORED. CALL LIGHT WITHIN REACH.
--- NOTE | 2019-08-04 22:36 | NUR ---
RESTING, EYES CLOSED, HOB ELEVATED
--- NOTE | 2019-08-05 00:07 | NUR ---
resting, eyes closed, O2 2L NC in place, no resp distress, call light at hands reach, hob elevated, bed alarm on.
--- NOTE | 2019-08-05 01:19 | NUR ---
resting, eye closed, O2 2L NC in place, resp even, unlabored. no cough heard at this time. spot o2 check 94% R18. Bed alarm on, continuous on isolation precautions
--- NOTE | 2019-08-05 03:58 | NUR ---
Resting, no distress, eyes closed, no cough, O2 2LNC. bed alarm on, NPO
--- NOTE | 2019-08-05 05:32 | NUR ---
pt incontinent of urine and semiliquid green bm , up to br, voided in hat 300cc yellow urine, skin care and barrier lotion applied to red area between buttocks, coop, clean attends in place. back to chair, continues to have moist productive cough, O2 2L NC in place, sarts 90%m on return, sob w exertion preswent. NPO, mouth care done, cooperative, watching tv. ivf infusing
--- NOTE | 2019-08-05 05:40 | NUR ---
Pt continues on Contact and droplet isolation. O2 2LNC, continues to have moist productive of clear thin drainage hacky frequent coarse cough, Denies co pain. Incontinent of urine and bowel. Slow unsteady gait at times, NPO mouth care done. IVF infusing L arm, L arm slight edema below iv site from previous infiltration. patent.
--- NOTE | 2019-08-05 07:45 | NUR ---
REPORT RECEIVED FROM KEYBOARD INSTRUMENT TUNER RN. PT SITTING IN CHAIR. RESPIRATIONS EQUAL AND NONLABORED. 2L NC IN PLACE. PRECAUTIONS IN PLACE. CALL LIGHT IN REACH.
--- NOTE | 2019-08-05 09:11 | NUR ---
SPEACH THERAPY IN TO DO BEDSIDE SWALLOW EVAL.
--- NOTE | 2019-08-05 10:00 | NUR ---
Spoke with patient. He is again stating he wants to go home. He states he does not want to go to a SNF when discharged. Called and spoke with pts mother and she states she is ready for him to come home. She assists him with his medications and staying track. He is ok to return to home whenever Dr. galo.
--- NOTE | 2019-08-05 10:00 | NUR ---
PHYSICAL THERAPY IN TO WORK WITH PT. SBA TO BATHROOM, LARGE URINE INCONTINENCE. 1 SMALL LIQUID STOOL. 2L NC IN PLACE. ASSESSMENT COMPLETED. LUNGS COARSE THROUGHOUT. VITALS TAKEN. LOW GRADE FEVER OFF 99. 95% ON 2L. 88% ON RA AR REST. CALL LIGHT IN REACH. PT UP IN CHAIR.
--- NOTE | 2019-08-05 11:00 | NUR ---
Update from Rn. Notified by Charge nurse pt is aspirating with all textures. She has notified Dr. Tillman. Visit in room deferred.
--- NOTE | 2019-08-05 11:17 | NUR ---
STILL UNABLE TO VISIT BECAUSE OF PRECAUTIONS
--- NOTE | 2019-08-05 12:48 | NUR ---
ROUNDED ON PT. IV TO RIGHT FORARM STARTED. PT DENIES PAIN OR SOB. COUGH SEEMS TO BE IMPROVING. MINIMAL COGU WHILE IN ROOM. SPEACH THERAPY REPORTED COUGHING WITH EATING. RECOMMENDS NPO AT THIS TIME AND MODIFIED BARIUM SWALLOW. PT SEEMS MORE AWAKE AND ALERT TODAY. SITTTING UP IN CHAIR. ATTEMPTED TO VOID WITH NO RESULTS. CALL LIGHT IN REACH. ROOM STRAIGHTENED UP.
--- NOTE | 2019-08-05 16:30 | NUR ---
In and spoke with Marina. He sleeping soundly. Asked if I he agrees to medical updates to be given to Reshma from his [facility]. Pt states, "yes". Witnessed by Rox White. Dr. Tillman updated pt consents to updates to Reshma.
--- NOTE | 2019-08-05 19:05 | NUR ---
RECEIVED REPORT, PT IS AWAKE IN CHAIR AT THIS TIME, CALL LIGHT IS CLOSE.
--- NOTE | 2019-08-05 21:05 | NUR ---
PT IS AWAKE IN CHAIR, DENIES NEEDS AT THIS TIME. WILL GET K+ RIDER MIXED AND RETURN TO ADMINISTER. CALL LIGHT IS CLOSE.
--- NOTE | 2019-08-05 22:15 | NUR ---
Potassium, Lidocaine, and D5 mixed as prescribed with daphney Piercepharmwenceslao.
--- NOTE | 2019-08-05 22:22 | NUR ---
IN ROOM TO ADMINISTER MEDICATIONS AND ASSESS PT. SEE ASSESSMENT. PT DENIES SOB BUT WAS PLACED ON 02 .05L NC D/T DESATING WHEN FALLING ASLEEP. HE IS IN THE CHAIR AT THIS TIME. AND DENIES PAIN/NEEDS. CALL LIGHT IS CLOSE.
--- NOTE | 2019-08-05 22:43 | NUR ---
ASSISTED PT TO BED FROM CHAIR. HE DENIES FURTHER NEEDS AT THIS TIME. IV IS INFUSING FINE.
--- NOTE | 2019-08-06 00:44 | NUR ---
PT IS AWAKE IN BED, HE DENIES NEEDS AT THIS TIME. CALL LIGHT IS CLOSE.
--- NOTE | 2019-08-06 03:16 | NUR ---
ASSISTED PT TO RESTROOM AND BACK TO CHAIR. ADMINISTERED SHRUTHIITUSSIN, HE IS COUGHING ALOT AND ON RA. HE DENIES FURTHER NEEDS AT THIS TIME. CALL LIGHT IS CLOSE.
--- NOTE | 2019-08-06 05:20 | NUR ---
BRENDEN CANCINO ASSISTED PT TO THE RESTROOM AND BACK TO CHAIR.
--- NOTE | 2019-08-06 08:30 | NUR ---
PT SITTING UP IN CHAIR ALERT AND WATCHING TV, ASSESSMENT COMPLETED. CALL LIGHT IN REACH. PT AGREES TO USE CALL LIGHT FOR SAFETY.
--- NOTE | 2019-08-06 10:45 | NUR ---
PT SITTING UP IN CHAIR. PT WAS INCONTINANT OF URINE WAS ASSISTED UP TO THE BATHROOM WITH 1PA. PT ASSISTED IN CLEANING UP, NEW GOWN APPLIED. AND CHAIR CLEANED WITH FRESH LINENS AND CHUCKS APPLIED. PT BACK TO CHAIR. CALL LIGHT AND H2O IN REACH. PT DENIES FURTHER NEEDS OR CONCERNS.
--- NOTE | 2019-08-06 12:45 | NUR ---
PT SITTING UP IN CHAIR EATING LAST BIT OF LUNCH. PT TOLERATED 100% OF HIS LUNCH. NO COUGHING VISUALIZED WITH EATING. RESPIRATIONS EVEN AND UNLABORED AND PT DENIES ANY SOB.
--- NOTE | 2019-08-06 14:00 | NUR ---
ASSUMING CARE AT THIS TIME
--- NOTE | 2019-08-06 16:53 | NUR ---
ASSESSMENT COMPLETED, SBA INTO BATHROOM TO VOID AND LARGE LOOSE BROWN STOOL, ENDURANCE HAS CONT. TO IMPROVE, SOB WITH EXHERTION BUT IS MAINTAING OXIMETER 90% ON RA, INCON. OF URINE IN CHAIR WELL, NEW LINENS AND SKIN CARE GIVEN, TAKING PO FLUIDS WELL, ROOM WIPED DOWN AT THIS TIME WELL, PT IN CHAIR WATCHING TV PROGRAM, MAINTAING DROPLET ISOLATION, LOOSE PROD COUGH OF GRAYISH GREEN MUCOUS. CLEARS AIRWAY EASILY.CALL LIGHT IN EASY REACH.
--- NOTE | 2019-08-06 17:30 | NUR ---
PT SITTING UP IN RECLINER, DINNER PROVIDED, SAYS HE IS HUNGRY, PUREED TURKEY MEAL WITH PUDDING, PT SEEMS PLEASED, WILL MONITOR CLOSELY WHILE EATING, CALL LIGHT IN EASY REACH.
--- NOTE | 2019-08-06 18:11 | NUR ---
ATE 100% OF DINNER AND DRANK 500ML WATER, IN GOOD SPIRITS, CONT. TO HAVE LOOSE PROD COUGH WHICH HE IS CLEARING EASILY, OXIMETER ON RA IS 92%. PULL UP IS DRY, DECLINES GOING INTO BATHROOM. CALL LIGHT IN EASY REACH, WATCHING TV PROGRAM.
--- NOTE | 2019-08-06 19:20 | NUR ---
SHIFT REPORT RECIEVED FROM NACHO VELÁSQUEZ. PT SITTING IN CHAIR WATCHING TV. NO NEEDS AT THIS TIME. CALL LIGHT IN REACH.
--- NOTE | 2019-08-06 22:00 | NUR ---
ASSESSMENT, VS AND I&O COMPLETED. LUNGS HAVE EXPIRATORY WHEEZING IN UPPER LOBES AND DIMINISHED IN LOWER LOBES. PT HAS HAD SEVERAL LOOSE BMs. IV WNL, CDI, FLUSHED WELL. SCHEDULED MEDS PROVIDED. NO OTHER NEEDS. CALL LIGHT IN REACH.
--- NOTE | 2019-08-06 22:56 | NUR ---
IV PUMP ALARMING. MEDICATION COMPLETED. NO OTHER NEEDS. CALL LIGHT IN REACH.
--- NOTE | 2019-08-07 00:56 | NUR ---
PT RESTING IN BED, EYES CLOSED. RR EVEN, UNLABORED. CALL LIGHT IN REACH.
--- NOTE | 2019-08-07 01:55 | NUR ---
pts depends were soiled, pt cleaned up and assisted back into bed.
--- NOTE | 2019-08-07 02:51 | NUR ---
PT RESTING IN BED, EYES CLOSED. RR EVEN, UNLABORED. CALL LIGHT IN REACH.
--- NOTE | 2019-08-07 06:36 | NUR ---
ASSESSMENT, VS AND I&O COMPLETED. BRIEFS CHANGED, INCONTINENT OF URINE AND LOOSE STOOL. LUNGS HAVE EXPIRATORY WHEEZING IN UPPER LOBES AND DIMINISHED IN LOWER LOBES. IV WNL. PT UP IN CHAIR WATCHING TV. NO OTHER NEEDS AT THIS TIME. CALL LIGHT IN REACH.
--- NOTE | 2019-08-07 08:30 | NUR ---
PT SITTING UP EATING WITH ASSISTANCE FROM UTILITY WORKER FORGE. CALL LIGHT AND H2O IN REACH. PT ASSESSMENT COMPLETED. NO NEEDS OR CONCERNS VOICED.
[2019-08-07] MEDS ORDERED: DOXYCYCLINE HY100 MG PO (11:17)
[2019-08-07] MEDS ORDERED: BENZONATATE100 MG PO (11:18)
[2019-08-07] MEDS ORDERED: TESSALON PERLE100 MG PO (11:18)
--- NOTE | 2019-08-07 13:04 | NUR ---
CALLED PT'S CAREGIVER MATILDE WHO WILL BE HERE SHORTLY TO [employer] SOFTWARE CONSULTANT PATIENT.
--- NOTE | 2019-08-08 08:05 | NUR ---
Noted orders for Trevor for [facility] [place]. Called and spokew with Reshma and requested which HH they would like. She states she thought he was going to OP. Informed I will call, but thought OP is working on a limited bases and not take any pt's over 60. Called and confirmed. Return to Reshma and asked if she would like to try and get him on the schedule for OP and they may or may not see him or I can order HH. She requests HH and I will notify [facility] as they have ST. DC summary, Dc orders, face sheet,progress notes. Faxed to [facility].
== END 2019-08-07 13:30 | disposition home or self-care (01) | DRG 871 ==
LOC: ED 20:48 → MS 08-01 00:16 → CCU 08-01 00:16 → MS 08-01 11:05
PROVIDERS: ADMIT Internal Medicine
DX: A41.9 Sepsis, unspecified organism (principal); J18.9 Pneumonia, unspecified organism; J96.01 Acute respiratory failure with hypoxia; N17.9 Acute kidney failure, unspecified; E87.6 Hypokalemia; R19.7 Diarrhea, unspecified; M81.0 Age-related osteoporosis without current pathological fracture; R62.50 Unspecified lack of expected normal physiological development in childhood; Z79.899 Other long term (current) drug therapy; Z79.83 Long term (current) use of bisphosphonates
CPT/HCPCS: 36415; 51701; 71045; 71250; 80048; 80053; 81001; 83605; 83735; 83880; 85025; 86140; 87040; 87081; 87088; 87502; 87880; 92526; 92610; 97110; 97116; 97162; 97530; 99285-25; J0456; J0696; J1650; J1940; J3480; J7030; J7060; J7121

== ENCOUNTER 2021-05-22 00:27 | Emergency (ER) | payer MEDICARE, OTHER ==
[~2021-05-22] VITALS: Ht 160 cm; Wt 73.0 kg
[~2021-05-22 00:27] MED LIST changes: +ALENDRONATE SOD70 MG PO; +BENZONATATE100 MG PO; +DOXYCYCLINE HY100 MG PO; +TESSALON PERLE100 MG PO; +TYLENOL325 MG PO
--- NOTE | 2021-05-23 11:26 | EKG ---
[facility] [address] [place] [address] Signed Undetermined rhythm Left anterior fascicular block Septal infarct , age undetermined Possible Lateral infarct (cited on or before 05-JUL-2018) Abnormal ECG When compared with ECG of 31-JUL-2019 21:01, Current undetermined rhythm precludes rhythm comparison, needs review Septal infarct is now present Nonspecific T wave abnormality now evident in Anterior leads Confirmed by KO CARVER MD ([id number]) on 05/23/2021 11:26:37 AM Electronically Signed By: KO CARVER MD 05/23/21 1126 PATIENT NAME: VIKA SANTILLAN Electrocardiogram DATE OF : 54 PHYSICIAN: KO CARVER MD REPORT #: [id number] REPORT IS CONFIDENTIAL AND NOT TO BE RELEASED WITHOUT AUTHORIZATION
== END 2021-05-22 04:40 | disposition home or self-care (01) ==
LOC: ED 00:27
DX: U07.1 COVID-19 (principal); J12.82 Pneumonia due to coronavirus disease 2019; Z88.0 Allergy status to penicillin; Z79.899 Other long term (current) drug therapy
CPT/HCPCS: 71045; 80053; 83605; 84484; 85025; 93005; 93010; 96374; 99285-25; C9803; J1885; J7121; U0003

== ENCOUNTER 2021-12-14 10:29 | Emergency (ER) | payer MEDICARE, OTHER ==
[~2021-12-14] VITALS: Ht 160 cm; Wt 73.0 kg
[2021-12-14] MEDS ORDERED: EAR WAX REMOVAL15 ML OTIC (10:40)
[2021-12-14] MEDS ORDERED: TAMSULOSIN HCL0.4 MG PO (10:40)
[2021-12-14] MEDS ORDERED: POLYETHYLENE GL17 GM PO (10:40)
--- NOTE | 2021-12-15 07:13 | EKG ---
[facility] [address] [facility] [place] [address] Signed Sinus rhythm with occasional premature ventricular complexes Left anterior fascicular block Minimal voltage criteria for LVH, may be normal variant ( [place] product ) Anterior infarct (cited on or before 05-JUL-2018) Abnormal ECG Confirmed by NOHEMI ESTEBAN MD ([id number]) on 12/15/2021 7:13:39 AM Electronically Signed By: NOHEMI ESTEBAN MD 12/15/21 0713 PATIENT NAME: VIKA SANTILLAN Electrocardiogram DATE OF : 54 PHYSICIAN: NOHEMI ESTEBAN MD REPORT #: [id number] REPORT IS CONFIDENTIAL AND NOT TO BE RELEASED WITHOUT AUTHORIZATION
== END 2021-12-14 11:53 | disposition home or self-care (01) ==
LOC: ED 10:29
DX: R55 Syncope and collapse (principal); Z88.0 Allergy status to penicillin; Z79.899 Other long term (current) drug therapy
CPT/HCPCS: 36415; 80048; 85025; 93005; 93010; 99284-25

== ENCOUNTER 2022-02-13 13:33 | Emergency (ER) | payer MEDICARE, OTHER ==
[~2022-02-13] VITALS: Ht 160 cm; Wt 73.0 kg
[~2022-02-13 13:33] MED LIST changes: +EAR WAX REMOVAL15 ML OTIC; +POLYETHYLENE GL17 GM PO; +TAMSULOSIN HCL0.4 MG PO
--- NOTE | 2022-02-13 18:45 | EKG ---
[facility] [address] [facility] [place], [place] [address] Signed Sinus rhythm with occasional premature ventricular complexes Left anterior fascicular block Anterolateral infarct , age undetermined Abnormal ECG No previous ECGs available Confirmed by NOHEMI ESTEBAN MD ([id number]) on 02/13/2022 6:45:15 PM Electronically Signed By: NOHEMI ESTEBAN MD 02/13/22 1845 PATIENT NAME: VIKA SANTILLAN MOIRA Electrocardiogram DATE OF : 54 PHYSICIAN: NOHEMI ESTEBAN MD REPORT #: [id number] REPORT IS CONFIDENTIAL AND NOT TO BE RELEASED WITHOUT AUTHORIZATION
== END 2022-02-13 14:59 | disposition home or self-care (01) ==
LOC: ED 13:33
DX: R07.9 Chest pain, unspecified (principal); Z88.0 Allergy status to penicillin; Z79.899 Other long term (current) drug therapy
CPT/HCPCS: 36415; 71045; 80053; 83735; 84484; 85025; 93005; 93010; 99285-25

== ENCOUNTER 2022-04-07 12:33 | Emergency (ER) | payer MEDICARE, OTHER ==
[~2022-04-07] VITALS: Ht 160 cm; Wt 64.5 kg
[2022-04-07] MEDS ORDERED: TAMIFLU75 MG PO (14:48)
== END 2022-04-07 15:15 | disposition home or self-care (01) ==
LOC: ED 12:33
DX: J10.1 Influenza due to other identified influenza virus with other respiratory manifestations (principal); Z88.0 Allergy status to penicillin; Z79.899 Other long term (current) drug therapy; Z20.822 Contact with and (suspected) exposure to COVID-19
CPT/HCPCS: 87502; 99283; C9803; U0003

== ENCOUNTER 2022-05-26 14:00 | Emergency (ER) | payer MEDICARE, OTHER ==
[~2022-05-26] VITALS: Ht 160 cm; Wt 63.5 kg
[~2022-05-26 14:00] MED LIST changes: +TAMIFLU75 MG PO
[2022-05-26] MEDS ORDERED: OMEPRAZOLE20 MG PO (14:12)
[2022-05-26] MEDS ORDERED: ALFUZOSIN HCL10 MG PO (14:12)
--- NOTE | 2022-05-27 22:08 | EKG ---
[facility] [address] [place] [address] Signed Atrial flutter with 4:1 AV conduction Left anterior fascicular block Minimal voltage criteria for LVH, may be normal variant ( [place] product ) Anterolateral infarct (cited on or before 05-JUL-2018) Abnormal ECG When compared with ECG of 13-FEB-2022 13:30, Atrial flutter has replaced Sinus rhythm Confirmed by NOHEMI ESTEBAN MD ([id number]) on 05/27/2022 10:07:53 PM Electronically Signed By: NOHEMI ESTEBAN MD 05/27/22 2208 PATIENT NAME: VIKA SANTILLAN Electrocardiogram DATE OF : 54 PHYSICIAN: NOHEMI ESTEBAN MD REPORT #: [id number] REPORT IS CONFIDENTIAL AND NOT TO BE RELEASED WITHOUT AUTHORIZATION
== END 2022-05-26 15:43 | disposition home or self-care (01) ==
LOC: ED 14:00
DX: R41.82 Altered mental status, unspecified (principal); Z88.0 Allergy status to penicillin; Z79.899 Other long term (current) drug therapy
CPT/HCPCS: 36415; 80053; 83735; 84484; 85025; 93005; 93010; 99284-25

== ENCOUNTER 2022-10-10 05:37 | Day surgery (SDC) | payer MEDICARE, OTHER ==
[~2022-10-10] VITALS: Ht 160 cm; Wt 68.2 kg
[~2022-10-10 05:37] MED LIST changes: +ALFUZOSIN HCL10 MG PO; +CITRACAL-VIT D1 EAC1 PO; +DITROPAN XL5 MG PO; +OMEPRAZOLE20 MG PO; +TUSSIN CF COUG118 ML
[2022-10-10 05:54] VITALS: BP 149/71
[2022-10-10 08:20] VITALS: BP 144/73
--- NOTE | 2022-10-10 08:34 | NUR ---
10/10/22 0834 Yury,Rebeca 0757 PT ARRIVED TO PACU PT ASLEEP AND PVCS NOTED, GEEK SQUAD AGENT AWARE. PT STARTED MOVING IN BED AND GRABBING AT HIS FACE. 0759 O2 REMOVED AND HOB INCREASED. PT NODS AND REPORTS HE IS DOING "OK". RN HELPS PT PUT HIS SHOES ON PER REQUEST. 0810 PT MOVING AORUND IN BED AND PT RPEORTS READINESS TO RETURN TO ROOM. VSS AND PT AWAKE AND LOOKING AROUND ROOM. 0815 PT RETURNED TO ROOM WITH CAREGIVER AT BEDSIDE. ALL QUESTIONS ANSWERED AND NO OTHER CONCERNS AT TIME TIME. REPORT GIVEN.
--- NOTE | 2022-10-10 08:36 | NUR ---
0820-PATIENT BACK TO ROOM FROM PACU ON RA. PATIENT IS SITTING UP IN BED. RESP EVEN AND UNLABORED. DENIES PAIN. PROVIDED PATIENT WITH JELLO AND APPLE JUICE. CAREGIVER IN ROOM. CALL LIGHT WITHIN REACH. NO OTHER NEEDS AT THIS TIME.
[2022-10-10 09:00] VITALS: BP 141/76
--- NOTE | 2022-10-10 10:18 | NUR ---
LE 0900-PATIENT SITTING UP IN BED. RESP EVEN AND UNLABORED. DENIES PAIN. NO DRAINAGE NOTED IN PATIENT'S MOUTH. PATIENT IS READY TO GO HOME. CAREGIVER HELPING PATINET GET DRESSED.
--- NOTE | 2022-10-10 10:19 | NUR ---
TYRELL 0910-WENT OVER DISCHARGE INSTRUCTIONS WITH PATIENT'S CAREGIVER. ALL QUESTIONS ANSWERED. PATIENT WOULD LIKE TO USE WALKER INSTEAD OF A WHEELCHAIR. THIS RN WALKED WITH PATIENT OUT TO THE CAREGIVERS VAN. GAIT STEADY.
--- NOTE | 2022-10-10 11:21 | NUR ---
PT TAKEN TO OR, CONNECTED WITH CG. NO NEEDS OR REQUESTS, JUST WAITING. WILL FOLLOW
== END 2022-10-10 09:10 | disposition home or self-care (01) ==
LOC: OPS 05:37 → DS 05:37 → OPS 07:00
PROVIDERS: ATTEND Dentist General Practice
PROC: 0CDWXZ0 Extraction of Upper Tooth, Single, External Approach (ICD-10-PCS; principal; 2022-10-10 07:00)
DX: K05.6 Periodontal disease, unspecified (principal); K08.409 Partial loss of teeth, unspecified cause, unspecified class
CPT/HCPCS: 36415; 71045; 80048; 85025; A9270; J0330; J1100; J2405; J2704; J3010; J7121

== ENCOUNTER 2023-06-22 05:52 | Day surgery (SDC) | payer MEDICARE, OTHER ==
[2023-06-18 14:09] VITALS: BP 120/59
[2023-06-22] VITALS (8 sets, daily range): BP systolic 105–165; BP diastolic 53–97
[~2023-06-22] VITALS: Ht 160 cm; Wt 61.3 kg
[~2023-06-22 05:52] MED LIST changes: +BOTULINUM TOXIN TYPE A 100 UNITS VIAL IM ONE; +LACTATED RINGER'S 1,000 ML IV SCH
[2023-06-22 06:32] LABS: BUN/CREATININE RATIO 23.95 (6.0-28.6); CALCIUM 9.9 mg/dL (8.5-10.1); CREATININE, SERUM 0.96 mg/dL (0.70-1.30)
[2023-06-22] MEDS ORDERED: LIDOCAINE HCL 1% 5 ML SDV INJ ONE (07:00)
[2023-06-22] MEDS ORDERED: CEFAZOLIN SODIUM 2 GM/20 ML SYR IV SCH (07:00)
[2023-06-22] MEDS ORDERED: LIDOCAINE HCL 4% 50 ML BTL TOP SCH (07:00)
[2023-06-22] MEDS ORDERED: BOTULINUM TOXIN TYPE A 100 UNITS VIAL IM ONE (07:00)
[2023-06-22] MEDS ORDERED: IBLOOD GLUCOSE TEST STRIP 1 EA TEST VI PRN ×2 (07:00→09:30)
[2023-06-22] MEDS ORDERED: fentaNYL citrate 100 MCG/2 ML VIAL ONE (07:30)
[2023-06-22] MEDS ORDERED: KETAMINE in NS 50 MG/5 ML SYR ONE (07:30)
[2023-06-22] MEDS ORDERED: ACETAMINOPHEN 1,000 MG/100 ML VIAL ONE (07:31)
[2023-06-22] MEDS ORDERED: ROCURONIUM BROMIDE 50 MG/5 ML SYR ONE (07:31)
[2023-06-22] MEDS ORDERED: SODIUM CHLORIDE 0.9% 40 ML IV ONE (07:31)
[2023-06-22] MEDS ORDERED: ondansetron HCL 4 MG/2 ML VIAL ONE (07:31)
[2023-06-22] MEDS ORDERED: DEXAMETHASONE SOD PHOS 4 MG/ML VIAL ONE (07:31)
[2023-06-22] MEDS ORDERED: propofoL 200 MG/20 ML VIAL ONE (07:31)
[2023-06-22] MEDS ORDERED: MAGNESIUM SULFATE 1 GM/2 ML VIAL ONE (07:31)
[2023-06-22] MEDS ORDERED: dexmedeTOMIDine HCl 200 MCG/2 ML VIAL ONE (07:31)
[2023-06-22] MEDS ORDERED: LIDOCAINE HCL 2% 5 ML SDV ONE (07:31)
[2023-06-22] MEDS ORDERED: LACTATED RINGER'S 1,000 ML IV SCH (08:00)
[2023-06-22] MEDS ORDERED: OXYCODONE/APAP 5/325 TAB PO PRN (08:00)
[2023-06-22] MEDS ORDERED: ondansetron HCL 4 MG/2 ML VIAL IV PRN ×2 (08:00→09:30)
[2023-06-22] MEDS ORDERED: MORPHINE SULFATE 4 MG/ML VIAL IV PRN (08:00)
[2023-06-22] MEDS ORDERED: ondansetron HCL 4 MG TAB PO PRN (08:00)
[2023-06-22] MEDS ORDERED: diphenhydrAMINE HCL 25 MG CAP PO PRN (08:00)
[2023-06-22] MEDS ORDERED: SEVOFLURANE 250 ML BTL ONE (08:08)
[2023-06-22] MEDS ORDERED: ePHEDrine sulfate 50 MG/ML AMP ONE (08:34)
[2023-06-22] MEDS ORDERED: FLUORESCEIN SODIUM 500 MG/5 ML ML ONE (08:58)
[2023-06-22] MEDS ORDERED: oxyBUTYnin chloride 5 MG TAB PO SCH (09:00)
[2023-06-22] MEDS ORDERED: SUGAMMADEX SODIUM 200 MG/2 ML ML ONE (09:29)
[2023-06-22] MEDS ORDERED: KETOROLAC TROMETHAMINE 30 MG/ML VIAL IV PRN (09:30)
[2023-06-22] MEDS ORDERED: fentaNYL citrate 100 MCG/2 ML VIAL IV PRN (09:30)
[2023-06-22] MEDS ORDERED: NALOXONE HCL 0.4 MG SYR IV PRN (09:30)
[2023-06-22] MEDS ORDERED: MIDAZOLAM HCL 2 MG/2 ML VIAL IV PRN (09:30)
[2023-06-22] MEDS ORDERED: PROCHLORPERAZINE EDISYLATE 10 MG/2 ML VIAL IV PRN (09:30)
--- NOTE | 2023-06-22 11:16 | NUR ---
PT ARRIVES TO UNIT AT 1024 VIA GURNEY. VSS. PT WAKE, RESTLESS AND REQUIRING ONE-TO-ONE ATTENTION TO KEEP PT FROM CRAWLING OUT OF BED. PT HAS COGNITIVE DEVELOPMENT DELAY. REQUIRES CONSTANT ATTENTION AND PROMPTING, CAN FOLLOW DIRECTIONS. BILLING SPEC HONEY IN ROOM BUT LEAVES DUE TO OTHER JOB OBLIGATIONS. BEDSIDE REPORT RECEIVED FROM CHRISTEN MACIEL FROM . RAHEEM STAYS IN ROOM WITH PT TO ASSIST WITH PT AND PT SAFETY. BED ALARM ON. CBI, NS, IRRIGATING BLADDER VIA 3-WAY CATHETER, URINE CLEAR AND YELLOW UPON ARRIVAL, TURNS TO LIGHT PINK DURING ASSESSMENT. CATHETER SECURED TO LLE, BRIEF IN PLACE. IV IN RIGHT WRIST, INTACT, PATENT, NO REDNESS, SWELLING OR LEAKING NOTED. LR INFUSING VIA GRAVITY. SCD'S ON BLE FROM TOES TO KNEES. PT HAVE GLASSES ON, UPPER DENTURES INSERTED. HEARING AIDS IN PLACE UPON ARRIVAL. PT ASSESSMENT COMPLETE. CONTINUOUS PULSE OXIMETER IN PLACE, PT SATS 95% ON RA. PT SITS UP IN BED. OCCUPIES SELF WITH STICKERS AND COLOR SHEETS. RAHEEM AT BEDSIDE. PT IS CALM AND FOLLOWS DIRECTION. CHARGE CANDACE ZIMMER RN, NOTIFIED OF NEED FOR ONE-TO-ONE FOR PT.
--- NOTE | 2023-06-22 11:47 | NUR ---
[facility] IN PACU NON RESPONSIVE TO NOXIOUS STIMULI. CHIN LIFT HELD BY RN. CUEVAS IN PLACE WITH CBI RUNNING. URINE BRIGHT YELLOW. 0955 PT REACTIVE AND TALKING TO STAFF. NO C/O'S. 1000 PT'S HEARING AIDES PLACED IN BILAT EARS. STICKERS AND KLEENEX GIVEN TO PT PER HIS REQUEST. 1005 PT ASKING TO SEE CAREGIVER. REMINDED WE WILL HEAD TO HIS ROOM AND SEE HER SOON. 1024 TO ROOM 119. REPORT GIVEN TO RN. BED PLUGGED IN. STAYED IN PT'S ROOM UNTIL 1135 WHEN RELIEF RN WAS AVAILABLE.
--- NOTE | 2023-06-22 12:40 | NUR ---
SPOKE WITH KAROLYN ROYAL AT [facility]. PATIENT PLAN IS TO RETURN TO [facility] WHEN DC CRITERIA MET, LIKELY TOMORROW. KAROLYN STATES SHE HAS A PRESCRIPTION FOR PATIENT'S PAIN MEDICATION BUT NEEDS A CLARIFICATION FROM DR. ARAUJO TO HAVE SCRIPT FOR OXYCODONE 5 MG PO Q 6 HOURS PRN OR Q 8 HOURS PRN, UNABLE TO USE ORDERS WITH TIME RANGE 6 TO 8 HOURS PRN. WILL DISCUSS WITH DR. ARAUJO AND SEND CLARIFICATION OF ORDER TO [facility] TOMORROW WITH DC PACKET. OTHERWISE, PATIENT HAS NO OTHER NEEDS AT THIS TIME.
--- NOTE | 2023-06-22 14:32 | NUR ---
PT SITS UP IN BED, AWAKE AND ALERT. EATS MEAL, FEEDS SELF WELL. IV IN RIGHT WRIST INFUSING LR, NO REDNESS SWELLING OR LEAKING NOTED. CBI IRRIGATION TO GRAVITY, CUEVAS CATHETER DRAINS LIGHT PINK, CLEAR FLUID.
--- NOTE | 2023-06-22 16:56 | NUR ---
PT SITS UP IN BED, AWAKE, VISITS WITH VISITOR X2. CBI IRRIGATING BLADDER, CUEVAS DRAINS CLEAR, LIGHT PINK URINE.
--- NOTE | 2023-06-22 16:57 | OR ---
[facility] [address] [place], [place] [address] Signed DATE OF OPERATION: 06/22/2023 SURGEON: Missy Araujo MD PREOPERATIVE DIAGNOSES: 1. Benign prostatic hyperplasia with active bladder outlet obstruction. 2. Overactive bladder. POSTOPERATIVE DIAGNOSES: 1. Benign prostatic hyperplasia with active bladder outlet obstruction. 2. Overactive bladder. NAMES OF PROCEDURES: 1. Diagnostic cystoscopy with Botox bladder injection, 100 units. 2. Urethral dilation using Celestino sounds from 14-Marshallese to 28-Marshallese. 3. Transurethral resection of the prostate. ANESTHESIA: General. ESTIMATED BLOOD LOSS: Minimal. COMPLICATIONS: None. SPECIMENS: Prostate chips sent to pathology for evaluation. DRAINS: A 22-Marshallese three-way Mason catheter, connected to continuous bladder irrigation. INDICATIONS FOR PROCEDURE: Mr. Santillan is a very pleasant 73-year-old gentleman with a history of developmental delay and long-standing bladder outlet obstruction with lower urinary tract symptoms. He has been experiencing lower urinary tract symptoms for many years now and last year underwent diagnostic cystoscopy which did reveal evidence of bladder wall trabeculation as well as an elevated bladder neck and lateral lobe hypertrophy. He underwent urodynamic studies not long thereafter, which did reveal an element of bladder outlet obstruction. He has been taking low-dose oxybutynin for fairly severe urinary urgency Electronically Signed By: MISSY ARAUJO MD 06/22/23 1657 PATIENT NAME: VIKA SANTILLAN OPERATIVE REPORT DATE OF : 54 REPORT #: [id number] PHYSICIAN: MISSY ARAUJO MD PCP: JESSICA TAYLOR DO REPORT IS CONFIDENTIAL AND NOT TO BE RELEASED WITHOUT AUTHORIZATION [facility] [address] [place], [place] [address] Signed and urge incontinence symptoms along with leakage without sensation. I informed the patient's healthcare sales and service representative that because he does have an element of bladder outlet obstruction, it would be better to remove the obstruction before more aggressively treating his overactive bladder symptoms. After discussion of the risks and benefits of TURP, the patient's health care sales and service representative has agreed to proceed. In particular, the risks of surgery that were discussed were the risk of hemorrhage and damage to the external urinary sphincter resulting in urinary incontinence. She is aware of this and has agreed to proceed. FINDINGS: 1. Digital rectal examination reveals a 50 g prostate that is soft, smooth and symmetric with no focal nodules. 2. Diagnostic cystoscopy reveals diffuse grade 2 bladder wall trabeculation with a small cellule measuring about 3 mm at the base of the bladder. Also of note, his left ureteral orifice sits very close to the bladder neck. This was noted during intraoperative planning prior to resection of the median lobe of his prostate. Otherwise, his bilateral ureteral orifices are effluxing clear urine. 3. Urethroscopy reveals a mildly elevated bladder neck with a small median lobe. He also has kissing lateral lobes. However, his prostate is short with only about 2 cm from bladder neck to verumontanum. 4. A total of 100 units of botulinum toxin was injected into the patient's bladder today without complication. The injections were primarily made into the posterior and lateral gomes of the bladder. 5. The patient's prostate was resected transurethrally using a 24-Marshallese bipolar loop. I was very careful in resecting the bladder neck due to the proximity of the left ureteral orifice. Only the right side of the bladder neck was resected because the right ureteral orifice was noted to not be adjacent to the bladder neck. At the end of the resection, I evaluated the left ureteral orifice and it was still functioning normally without any evidence of iatrogenic injury. The entire resection was performed down to the level of verumontanum. 6. At the end of the procedure, a 22-Marshallese three-way Mason catheter was inserted into the patient's bladder and 30 mL was placed in the Mason balloon. The catheter was manually irrigated and then connected to continuous bladder irrigation. DESCRIPTION OF PROCEDURE: After informed consent was obtained, the patient was taken to the operating room. [facility] was [facility] to the operating room table, where general anesthesia was induced. He was placed in the dorsal lithotomy position and his genitalia were prepped and draped in a standard sterile fashion. His urethral meatus and fossa navicularis were dilated using Jefferson sounds from 14-Marshallese to 28-Marshallese without difficulty. I then inserted a rigid cystoscope using a 30-degree lens and performed a Electronically Signed By: MISSY ARAUJO MD 06/22/23 165 PATIENT NAME: VIKA SANTILLAN OPERATIVE REPORT DATE OF : 54 REPORT #: [id number] PHYSICIAN: MISSY ARAUJO MD PCP: JESSICA TAYLOR DO REPORT IS CONFIDENTIAL AND NOT TO BE RELEASED WITHOUT AUTHORIZATION [facility] [address] [place] [id number] Signed thorough diagnostic cystoscopy. Please see the above findings. I then advanced a [employer] needle through the scope into the patient's bladder. The needle was protracted out to 3 mm. I then placed 0.5 mL injections throughout the bladder wall focusing mostly on the posterior and bilateral gomes of the bladder. A total of 100 units of botulinum toxin via 0.5 mL aliquots with a total of 11 mL injected. The patient tolerated this portion of the procedure well. I then retracted the [employer] needle, drained the patient's bladder and then removed the rigid cystoscope. I then injected 6 mL of sterile loop into the patient's urethra using a cath tip syringe. I then inserted a 26-Marshallese sheath into the patient's bladder using a visual obturator. This was switched out for a resectoscope with a 24-Marshallese bipolar loop. I took note of the slightly aberrant location of the left ureteral orifice as it was sitting very close to the bladder neck. I began resection of the median lobe very carefully in order to avoid the left ureteral orifice. The right ureteral orifice was not located near the bladder neck. After carefully resecting as much of the median lobes I could avoiding the left ureteral orifice, I then resected both the left and then right lateral lobes of the prostate down to the level of verumontanum. All the while adequate hemostasis was achieved and maintained using the bipolar cautery. Once I had removed as much tissue as I could, I then switched the loop out for the bipolar button and was able to achieve a good deal of hemostasis using the button. Again, I was very careful to avoid the left ureteral orifice. A Sarah syringe was used 2 or 3 times during the procedure to irrigate the prostate chips from the patient's bladder. This was performed without difficulty. Once the prostate tissue had been removed successfully and hemostasis was confirmed, I removed the resectoscope leaving the 26-Marshallese sheath behind. Through the sheath, I passed a 0.035 Sensor wire into the patient's bladder and then removed the 26-Marshallese sheath. Over the wire, I passed a 22-Marshallese three-way Mason catheter into the patient's bladder while also applying pressure to the patient's perineum. The Masno catheter went into the patient's bladder as this was evidence with a good deal of drainage of irrigant fluid upon insertion of the catheter. The Mason balloon was then filled with 30 mL of water. The catheter was manually irrigated a couple of times and then connected to continuous bladder irrigation. A digital rectal examination was then performed. Please see above findings. The procedure was then terminated. The patient tolerated the procedure well without any complication. He will now be transferred to the postanesthesia care unit in stable condition. DISPOSITION: I discussed the details of today's procedure with the patient's caregiver and answered all of her questions. I went ahead and gave her his prescriptions for Cipro 500 mg p.o. b.i.d. for a total of 7 days along with oxycodone 5 mg one tablet p.o. q, 6 to 8 hours p.r.n. pain, dispense #15. She will take these home today in order to get them filled prior to his discharge tomorrow. The patient's regular pureed diet will be restarted today on time for lunch and he will be maintained on CBI throughout the day. His CBI Electronically Signed By: MISSY ARAUJO MD 06/22/23 5342 PATIENT NAME: VIKA SANTILLAN OPERATIVE REPORT DATE OF : 54 REPORT #: [id number] PHYSICIAN: MISSY ARAUJO MD PCP: JESSICA TAYLOR DO REPORT IS CONFIDENTIAL AND NOT TO BE RELEASED WITHOUT AUTHORIZATION [address] [address] Signed will be slowly weaned to off keeping his urine clear to light pink in color. Tomorrow at around 0800, his Mason catheter will be discontinued and he will be given a voiding trial. He must void prior to his discharge tomorrow. He will be scheduled to see the Urology RN in two weeks for a postvoid residual. He will see me in 5-6 weeks for his 1st postoperative evaluation with a PVR. Missy Araujo MD AR/MODL /[id number] Copies: ~ Electronically Signed By: MISSY ARAUJO MD 06/22/23 1657 PATIENT NAME: VIKA SANTILLAN OPERATIVE REPORT DATE OF : 54 REPORT #: [id number] PHYSICIAN: MISSY ARAUJO MD PCP: JESSICA TAYLOR DO REPORT IS CONFIDENTIAL AND NOT TO BE RELEASED WITHOUT AUTHORIZATION
--- NOTE | 2023-06-22 21:02 | NUR ---
REPORT RECEIVED FROM DAY SHIFT RN. PATIENT SITTING IN BED REQUESTING PAPER TO DRAW. RN SITTER IN ROOM WITH PATIENT. NO FURTHER NEEDS. CALL LIGHT IN REACH.
--- NOTE | 2023-06-22 21:20 | NUR ---
PATIENT RESTING IN BED. NEW BAG IV FLUID INFUSING PER ORDER. SCHEDULED MEDICATION ADMINISTERED, CRUSHED IN PUDDING. IV FLUSHED AND WNL. PATIENT HAS NO FURTHER NEEDS. CALL LIGHT IN REACH.
--- NOTE | 2023-06-22 21:50 | NUR ---
PATIENT RESTING IN BED. VS AND I&Os OBTAINED AND RECORDED. NEW GOWN AND 2 WARM BLANKETS PROVIDED. ASSESSMENT COMPLETE. URINE CLEAR AND YELLOW. PATIENT HAS NO FURTHER NEEDS. CALL LIGHT IN REACH. FACE CLEANED AND WIPED WITH A WET WASH CLOTH. CUEVAS CATH CARE PROVIDED PER ORDER.
--- NOTE | 2023-06-23 00:33 | NUR ---
ROUNDING ON PATIENT. PATIENT AWAKE IN BED. SITTER ON A BATHROOM BREAK. THIS RN SAT WITH PATIENT. PATIENT HAS NO CURRENT NEEDS. CALL LIGHT IN REACH.
[2023-06-23 01:55] VITALS: BP 101/46
--- NOTE | 2023-06-23 01:57 | NUR ---
PATIENT RESTING IN BED WITH SITTER AT BEDSIDE. VS AND I&Os OBTAINED AND RECORDED. URINE IN CUEVAS IS PINK AT THIS TIME. NO FURTHER NEEDS. CALL LIGHT IN REACH.
--- NOTE | 2023-06-23 02:53 | NUR ---
PATIENT RESTING IN BED ON BACK WITH EYES CLOSED. SITTER IN ROOM AT BEDSIDE. PATIENT HAS NO CURRENT NEEDS. CALL LIGHT IN REACH.
[2023-06-23 04:34] VITALS: BP 103/50
--- NOTE | 2023-06-23 04:58 | NUR ---
PATIENT SITTING IN BED WITH SITTER AT BEDSIDE. CBI CLAMPED AT THIS TIME. I&Os OBTAINED AND RECORDED. ASSESSMENT COMPLETE. PATIENT URINE DILUTE CRANBERRY COLORED AT THIS TIME. ORANGE JUICE PROVIDED. NO FURTHER NEEDS.
--- NOTE | 2023-06-23 07:17 | NUR ---
REPORT FROM CHRISTEN PRIETO.
--- NOTE | 2023-06-23 07:36 | NUR ---
WASHED PATIENT FACE AND HELPED HIM BRUSH HIS TEETH. ALSO WE GOT HIM HIS HOT CHOCOLATE. NOW WE ARE WAITING FOR HIS BREAKFAST. PATIENT SITTING UP IN BED.
--- NOTE | 2023-06-23 08:40 | NUR ---
MORNING ASSESSMENT COMPLETE. DC'D CUEVAS CATHETER 0800. PATIENT ATE 100% BREAKFAST. PATIENT IS ABLE TO SWALLOW WHOLE TABLETS WITH A BITE OF YOGURT. IV ROCEPHIN INFUSING FOR 30 MINUTES. PATIENT DENIES PAIN AND OTHER NEEDS. PLAN TO REMOVE SALINE LOCK AFTER ANTIBIOTICS. CONTINUE TO MONITOR PATIENT FOR AVOID. POST VOID RESIDUAL SCAN THE PATIENT TO MONITOR FOR URINARY RETENTION.
[2023-06-23] MEDS ORDERED: CEFTRIAXONE/SODIUM CHLORIDE 1 GM/100 ML PIGGYBACK IV SCH (09:00)
[2023-06-23 09:18] VITALS: BP 111/72
[2023-06-23] MEDS ORDERED: EAR WAX DROPS15 M1 AU ×2 (09:25→09:26)
--- NOTE | 2023-06-23 09:29 | NUR ---
MED REC COMPLETE
[2023-06-23] MEDS ORDERED: CIPRO500 MG PO (09:37)
[2023-06-23] MEDS ORDERED: OXYCODONE HCL5 MG PO (09:37)
--- NOTE | 2023-06-23 10:45 | NUR ---
ROUNDS. PT RECEIVING NURSING CARE. DID NOT INTERRUPT. PROVIDED PRAYER.
--- NOTE | 2023-06-23 10:55 | NUR ---
DC PAPERS PROVIDED TO [employer] [address] CARE WORKERS. PATIENT SIGNED FOR THEMSELVES. RIGHT ARM IV REMOVED WITH CATHETER INTACT. 1040 PT VOIDED 200, PRIOR BLADDER SCAN SHOWED 496ML. PLANNING TO WAIT FOR 2ND VOID. SopheonEN WORKERS LEFT TO GET THEIR VAN.
--- NOTE | 2023-06-23 12:04 | NUR ---
PATIENT UP TO VOID, INCONT + 300ML. POST VOID RESIDUAL IS 196. PLAN TO TRY ONE MORE VOID/RESIDUAL AFTER PATIENT EATS LUNCH.
--- NOTE | 2023-06-23 12:48 | NUR ---
Student Nurse Armando notified Physician the patient voided 3 different times after beaulieu was removed. Instructed to preceed with discharge.
--- NOTE | 2023-06-24 09:54 | PATH ---
[facility] [address] [place], [place] [address] Signed SPECIMEN(S): A PROSTATE CHIPS SPECIMEN SOURCE: A. PROSTATE CHIPS CLINICAL HISTORY: BPH urinary incontinence, other obstructive FINAL PATHOLOGIC DIAGNOSIS: Prostate chips: - Prostatic adenocarcinoma. - Predicted [place] score: 4 + 3 = 7/10. - WHO Grade Group: 3. - Percentage of pattern 4: 60%. - Tumor involves approximately 30% of prostatic tissue. - Perineural invasion: Present. - Cribriform glands: Present. COMMENT: As part of [facility]' Quality Improvement Program, this case was reviewed by another member of our pathology staff. Diagnostic notification to the office of Dr. Taylor is initiated by Dr. Christianson and will be reported separately. JVR:BAMBIS:melo MICROSCOPIC EXAMINATION: Histologic sections of all submitted blocks are examined by light microscopy. These findings, together with the gross examination, support the pathologic diagnosis. Immunohistochemical staining, with appropriately reactive controls, for p63, high molecular weight cytokeratin, and AMACR (TriCAP--prostate cocktail multiplex stain) was performed on block A1. There is a complete absence of basal marker (p63, HMWK) expression combined with cytoplasmic AMACR expression in the focus/foci of interest. These results support the diagnosis of prostatic adenocarcinoma. JVR:cml GROSS DESCRIPTION: The specimen, labeled and designated "Ugo prostate chips," is received in formalin and consists of multiple fragments of pink-vyas soft and rubbery tissue (5.5 g, 4.3 x 4.3 x 1.5 cm in aggregate). PATIENT NAME: VIKA SANTILLAN PATHOLOGY DATE OF : 54 REPORT #: [id number] PHYSICIAN: NIMISHA PALOMARES PCP: JESSICA TAYLOR DO REPORT IS CONFIDENTIAL AND NOT TO BE RELEASED WITHOUT AUTHORIZATION [facility] [address], [place] [address] Signed The specimen is submitted entirely in cassette (A1-A4). VB (under the direct supervision of a pathologist) The Gross Description was prepared using a voice recognition system. The report was reviewed for accuracy; however, sound-alike word errors, addition and/or deletions may occur. If there is any question about this report, please contact Client Services. ADDITIONAL NOTES: Immunohistochemical and/or in situ hybridization studies were performed on this case with the appropriate positive controls that react as expected. This test was developed and its performance characteristics determined by [facility]. It has not been cleared or approved by the U.S. Food and Drug Administration. The FDA has determined that such clearance or approval is not necessary. This test is used for clinical purposes. It should not be regarded as investigational or for research. [facility] is certified under the Clinical Laboratory Improvement Amendments of 1988 (CLIA) as qualified to perform high complexity clinical laboratory testing. PERFORMING LABORATORY: Technical component was performed by [facility], [address] [place] [id number] (CLIA# [id number]). Professional interpretation was performed by [facility], [address] [place] [id number] (CLIA#: [id number]). Diagnostician: Tito Lockhart MD Pathologist Diagnostician: Morris Christianson MD Pathologist Electronically Signed 06/24/2023 Copies: ~ PATIENT NAME: VIKA SANTILLAN PATHOLOGY DATE OF : 54 REPORT #: [id number] PHYSICIAN: NIMISHA PATHOLOGY PCP: JESSICA TAYLOR DO REPORT IS CONFIDENTIAL AND NOT TO BE RELEASED WITHOUT AUTHORIZATION
== END 2023-06-23 13:10 | disposition home or self-care (01) ==
LOC: DS 05:52 → MS 05:52 → DS 07:30 → MS 10:20 → DS 06-23 13:10
PROVIDERS: ATTEND Urology
PROC: 0VT08ZZ Resection of Prostate, Via Natural or Artificial Opening Endoscopic (ICD-10-PCS; principal; 2023-06-22 07:30)
PROC: 3E0K8GC Introduction of Other Therapeutic Substance into Genitourinary Tract, Via Natural or Artificial Opening Endoscopic (ICD-10-PCS; 2023-06-22 07:30)
DX: C61 Malignant neoplasm of prostate (principal); N40.1 Benign prostatic hyperplasia with lower urinary tract symptoms; N13.8 Other obstructive and reflux uropathy; N32.81 Overactive bladder
CPT/HCPCS: 00910; 36415; 51798; 80048; 88305; 88344; C1769; J0131; J0585; J0690; J0696; J1100; J2001; J2405; J2704; J3010; J3475; J3490; J7121

== ENCOUNTER 2024-05-10 11:46 | Emergency (ER) | payer MEDICARE, OTHER ==
[~2024-05-10] VITALS: Ht 160 cm; Wt 63.5 kg
[~2024-05-10 11:46] MED LIST changes: -BOTULINUM TOXIN TYPE A 100 UNITS VIAL IM ONE; +CIPRO500 MG PO; +EAR WAX DROPS15 M1 AU; -LACTATED RINGER'S 1,000 ML IV SCH; +LEVOFLOXACIN500 MG PO; +LEVOTHYROXINE500 MCG PO
[2024-05-10 14:18] VITALS: BP 127/69
== END 2024-05-10 14:21 | disposition home or self-care (01) ==
LOC: ED 11:46
DX: K40.90 Unilateral inguinal hernia, without obstruction or gangrene, not specified as recurrent (principal); Z88.0 Allergy status to penicillin; Z79.890 Hormone replacement therapy; Z79.899 Other long term (current) drug therapy
CPT/HCPCS: 74176; 99284-25

== ENCOUNTER 2024-06-28 14:31 | Emergency (ER) | payer MEDICARE, OTHER ==
[~2024-06-28] VITALS: Ht 160 cm; Wt 63.5 kg
[2024-06-28] MEDS ORDERED: BACITRACIN 0.9 GM 1 PKT PKT TOP ONE (15:30)
[2024-06-28] MEDS ORDERED: ACETAMINOPHEN 325 MG TAB PO ONE (15:30)
[2024-06-28 17:15] VITALS: BP 154/82
== END 2024-06-28 17:08 | disposition home or self-care (01) ==
LOC: ED 14:31
DX: S00.01XA Abrasion of scalp, initial encounter (principal); I10 Essential (primary) hypertension; F81.9 Developmental disorder of scholastic skills, unspecified; Z88.0 Allergy status to penicillin; Z79.890 Hormone replacement therapy; Z79.899 Other long term (current) drug therapy; W19.XXXA Unspecified fall, initial encounter
CPT/HCPCS: 70450; 99283-25; A9270

== ENCOUNTER 2024-07-15 10:21 | Emergency (ER) | payer MEDICARE, OTHER ==
[~2024-07-15] VITALS: Ht 160 cm; Wt 74.0 kg
--- OUTSIDE RECORDS SUMMARY | 2024-07-15 10:23 | XMS ---
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 Ronda VISIT COUNT (12 MO.) 3 [facility] TOTAL 3 NOTE: Visits indicate total known visits. ED/UCC VISIT TRACKING (12 MO.) 07/15/2024 10:22 [facility] TYPE: Emergency COMPLAINT: - RT LEG PAIN 06/28/2024 14:31 [facility] TYPE: Emergency COMPLAINT: - FALL DIAGNOSES: - Abrasion of scalp, initial encounter - Allergy status to penicillin - Developmental disorder of scholastic skills, unspecified - Essential (primary) hypertension - Hormone replacement therapy - Other custodial (current) drug therapy - Unspecified fall, initial encounter - Unspecified injury of head, initial encounter 05/10/2024 11:[address] 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
[2024-07-15 11:53] VITALS: BP 122/64
== END 2024-07-15 11:54 | disposition home or self-care (01) ==
LOC: ED 10:21
DX: M79.651 Pain in right thigh (principal); R62.59 Other lack of expected normal physiological development in childhood; Z88.0 Allergy status to penicillin; Z79.890 Hormone replacement therapy; Z79.899 Other long term (current) drug therapy
CPT/HCPCS: 99283

== ENCOUNTER 2024-12-21 08:21 | Emergency (ER) | payer MEDICARE, OTHER ==
[~2024-12-21] VITALS: Ht 160 cm; Wt 74.0 kg
[2024-12-21 10:24] VITALS: BP 147/67
== END 2024-12-21 10:26 | disposition home or self-care (01) ==
LOC: ED 08:21
DX: S70.01XA Contusion of right hip, initial encounter (principal); Z88.1 Allergy status to other antibiotic agents; Z79.899 Other long term (current) drug therapy; Z79.2 Long term (current) use of antibiotics; W18.30XA Fall on same level, unspecified, initial encounter
CPT/HCPCS: 73502; 99283